=== PATIENT | male | born 1990 | race Caucasian/White ===

== ENCOUNTER → 2019-01-17 | Outpatient (CLI) | payer OTHER ==
[~2019-01-17] MED LIST: AMOXICILLIN500 MG PO; ATIVAN2 M1 PO; CLINDAMYCIN HC300 MG PO; CYMBALTA60 MG PO; HYDROCODONE BIT1 T11 PO; NAPROSYN500 MG PO; NEURONTIN300 MG PO; NKHM PO; PERCOCET 325 MG1 TA5 PO; VIBERZI75 MG PO; ZANTAC 150150 MG PO
[2019-01-17 16:34] LABS: BUN 6 mg/dl (7-24); CHLORIDE 100 mmol/L (98-107); POTASSIUM 3.9 mmol/L (3.5-5.1); SODIUM 136 mmol/L (136-145)
== END | disposition home or self-care (01) ==
LOC: LAB 15:36
PROVIDERS: Family Medicine
DX: E87.1 Hypo-osmolality and hyponatremia (principal); R73.9 Hyperglycemia, unspecified

== ENCOUNTER → 2020-09-15 | Outpatient (CLI) | payer OTHER | END | disposition home or self-care (01) | LOC: COVID19 09:55 | PROVIDERS: ATTEND Family Medicine | DX: Z20.822 Contact with and (suspected) exposure to COVID-19 (principal) ==

== ENCOUNTER → 2020-10-08 | Outpatient (CLI) | payer OTHER | END | disposition home or self-care (01) | LOC: COVID19 12:58 | PROVIDERS: ATTEND Internal Medicine | DX: Z20.822 Contact with and (suspected) exposure to COVID-19 (principal) ==

== ENCOUNTER → 2021-01-20 | Outpatient (CLI) | payer OTHER ==
[2021-01-20 12:32] LABS: BASO % 0.4 % (0.0-1.0); EOS # 0.1 10*3/uL (0.0-0.4); EOS % 0.8 % (1.0-4.0); LYMPH # 3.1 10*3/uL (1.3-4.4); LYMPH % 33.4 % (27.0-41.0); MEAN CELL VOLUME 91.8 fl (80.0-94.0); MEAN CORPUSCULAR HGB 30.5 pg (27.0-31.0); MEAN CORPUSCULAR HGB CONC 33.3 g/dl (33.0-37.0); MEAN PLATELET VOLUME 9.2 fl (9.6-12.3); MONO # 0.7 10*3/uL (0.1-1.0); MONO % 7.1 % (3.0-9.0); NEUT # 5.3 10*3/uL (2.3-7.9); PLATELET COUNT AUTOMATED 361 10*3/uL (130-400); RED BLOOD COUNT 5.01 10*6/uL (4.50-5.90); RED CELL DISTRI WIDTH 11.7 % (0-14.5); WHITE BLOOD COUNT 9.2 10*3/uL (4.8-10.8)
[2021-01-20 12:55] LABS: ALBUMIN 4.1 gm/dl (3.1-4.5); BUN 10 mg/dl (7-24); CHLORIDE 105 mmol/L (98-107); CREATININE 0.81 mg/dL (0.70-1.30); LIPASE 160 U/L (73-393); POTASSIUM 4.5 mmol/L (3.5-5.1); SGOT/AST 8 IU/L (3-35); SGPT/ALT 24 U/L (12-78); SODIUM 136 mmol/L (136-145); TOTAL PROTEIN 7.5 gm/dL (6.4-8.2)
[2021-01-20 13:00] LABS: ALKALINE PHOSPHATASE 89 U/L (45-117); CHOLESTEROL 164 mg/dL (<200); LDL CHOLESTEROL 108 mg/dL (9-159); TRIGLYCERIDES 55 mg/dl (<150)
== END | disposition home or self-care (01) ==
LOC: LAB 12:02
PROVIDERS: ATTEND Family Medicine
DX: R15.0 Incomplete defecation (principal)

== ENCOUNTER → 2021-06-11 | Outpatient (CLI) | payer OTHER ==
[2021-06-11 09:04] LABS: BUN 12 mg/dl (7-24); CHLORIDE 103 mmol/L (98-107); CREATININE 0.75 mg/dL (0.70-1.30); POTASSIUM 4.1 mmol/L (3.5-5.1); SODIUM 136 mmol/L (136-145)
== END | disposition home or self-care (01) ==
LOC: LAB 08:32
PROVIDERS: ATTEND Family Medicine
DX: R73.9 Hyperglycemia, unspecified (principal)

== ENCOUNTER 2021-12-27 10:35 | Inpatient (IN) | payer OTHER ==
[~2021-12-27] VITALS: Ht 193 cm; Wt 81.2 kg
[2021-12-27 10:43] VITALS: BP 121/77
[2021-12-27] MEDS ORDERED: ONDANSETRON HYDR4 MG PO (10:44)
[2021-12-27] MEDS ORDERED: AMOXICILLIN500 M2 PO (10:44)
[2021-12-27 11:11] LABS: HEMATOCRIT 47.7 % (42.0-52.0); MEAN CELL VOLUME 86.6 fl (80.0-94.0); MEAN CORPUSCULAR HGB 31.4 pg (27.0-31.0); MEAN CORPUSCULAR HGB CONC 36.3 g/dl (33.0-37.0); MEAN PLATELET VOLUME 9.1 fl (9.6-12.3); PLATELET COUNT AUTOMATED 417 10*3/uL (130-400); RED BLOOD COUNT 5.51 10*6/uL (4.50-5.90); RED CELL DISTRI WIDTH 11.7 % (0-14.5); WHITE BLOOD COUNT 16.3 10*3/uL (4.8-10.8)
[2021-12-27 11:13] LABS: MANUAL DIFF REFLEX YES
[2021-12-27 11:31] LABS: ALKALINE PHOSPHATASE 131 U/L (45-117); BUN 33 mg/dl (7-24); CHLORIDE 76 mmol/L (98-107); LIPASE 70 U/L (73-393); SGOT/AST 21 IU/L (3-35); SGPT/ALT 98 U/L (12-78); SODIUM 128 mmol/L (136-145); TOTAL PROTEIN 9.6 gm/dL (6.4-8.2)
[2021-12-27 11:33] LABS: ATYPICAL LYMPHS 1 % (0-0); PLATELET SUFFICIENCY HIGH (NORMAL); POLYCHROMASIA SLIGHT; TOTAL CELLS COUNTED 100 #CELLS
[2021-12-27 11:34] LABS: POTASSIUM 2.3 mmol/L (3.5-5.1); VACUOLATION OF NEUTROPHILS SLIGHT
[2021-12-27 12:15] VITALS: BP 117/66
[2021-12-27 12:15] LABS: ACT PARTIAL THROMBO TIME 27.4 SECONDS (20.0-32.1); INTERNATIONAL NORM RATIO 1.1 (2.0-3.5)
[2021-12-27 12:25] LABS: ETHYL ALCOHOL < 3.0 mg/dl (<3)
[2021-12-27 13:37] VITALS: BP 119/70
[2021-12-27 13:44] LABS: BILIRUBIN Negative (Negative); BLOOD Negative (Negative); CLARITY Cloudy (Clear); COLOR Dark Yellow (Yellow); GLUCOSE Trace (Negative); KETONE 2+ (Negative); LEUKO ESTERASE Trace (Negative); NITRITE Negative (Negative); PH 7.5 (4.5-8.0); SPECIFIC GRAVITY >= 1.030 (1.001-1.030)
[2021-12-27 13:55] LABS: BACTERIA 2+; MUCOUS 2+; URINE AMPHETAMINES < 1000 (1000ng/ml); URINE BARBITURATES < 200 (200ng/ml); URINE BENZODIAZEPINES < 200 (200ng/ml); URINE CANNABINOIDS (THC) > 50 (50ng/ml); URINE COCAINE < 300 (300ng/ml); URINE METHADONE < 300 (300ng/ml); URINE OPIATES < 300 (300ng/ml)
[2021-12-27 13:57] LABS: URINE PHENCYCLIDINE < 25 (25ng/ml)
[2021-12-27 15:06] VITALS: BP 116/76
[2021-12-27 15:07] LABS: ABG BASE EXCESS 16.6 mmol/L (-2.0-2.0); ARTERIAL BLOOD GAS PO2 85.6 (80-90)
[2021-12-27 15:09] LABS: ARTERIAL BLOOD GAS PH 7.711 (7.35-7.45)
[2021-12-27 15:30] VITALS: BP 134/84
[2021-12-27 15:31] LABS: BUN 33 mg/dl (7-24); CHLORIDE 84 mmol/L (98-107); CREATININE 1.18 mg/dL (0.70-1.30); SODIUM 131 mmol/L (136-145)
[2021-12-27 15:35] LABS: POTASSIUM 1.9 mmol/L (3.5-5.1)
[2021-12-27 19:20] LABS: BUN 27 mg/dl (7-24); CHLORIDE 88 mmol/L (98-107); SODIUM 133 mmol/L (136-145)
[2021-12-27 19:28] LABS: POTASSIUM 2.4 mmol/L (3.5-5.1)
[2021-12-27 20:00] VITALS: BP 122/62
[2021-12-27 22:16] LABS: BUN 23 mg/dl (7-24); CHLORIDE 89 mmol/L (98-107); CREATININE 0.99 mg/dL (0.70-1.30); SODIUM 133 mmol/L (136-145)
[2021-12-27 22:21] LABS: POTASSIUM 2.3 mmol/L (3.5-5.1)
[2021-12-28] VITALS: BP 134/75
[2021-12-28 02:25] LABS: BUN 20 mg/dl (7-24); CHLORIDE 89 mmol/L (98-107); CREATININE 0.95 mg/dL (0.70-1.30); SODIUM 133 mmol/L (136-145)
[2021-12-28 02:30] LABS: POTASSIUM 2.3 mmol/L (3.5-5.1)
[2021-12-28 05:46] LABS: ALKALINE PHOSPHATASE 81 U/L (45-117); BUN 15 mg/dl (7-24); CHLORIDE 93 mmol/L (98-107); CHOLESTEROL 120 mg/dL (<200); CREATININE 0.83 mg/dL (0.70-1.30); LDL CHOLESTEROL 80 mg/dL (9-159); POTASSIUM 2.5 mmol/L (3.5-5.1); SGOT/AST 19 IU/L (3-35); SGPT/ALT 59 U/L (12-78); SODIUM 134 mmol/L (136-145); TOTAL PROTEIN 6.5 gm/dL (6.4-8.2); TRIGLYCERIDES 72 mg/dl (<150)
[2021-12-28 05:51] LABS: FREE T4 1.61 ng/dl (0.76-1.46); THYROID STIM HORMONE (HS) 0.242 uIU/ml (0.358-4.75)
[2021-12-28 06:14] LABS: BASO % 0.1 % (0.0-1.0); EOS % 0.2 % (1.0-4.0); HEMATOCRIT 37.6 % (42.0-52.0); LYMPH % 16.3 % (27.0-41.0); MEAN CELL VOLUME 88.9 fl (80.0-94.0); MEAN CORPUSCULAR HGB CONC 34.8 g/dl (33.0-37.0); MEAN PLATELET VOLUME 9.6 fl (9.6-12.3); MONO # 1.3 10*3/uL (0.1-1.0); NEUT # 8.8 10*3/uL (2.3-7.9); PLATELET COUNT AUTOMATED 306 10*3/uL (130-400); RED BLOOD COUNT 4.23 10*6/uL (4.50-5.90); RED CELL DISTRI WIDTH 11.9 % (0-14.5); WHITE BLOOD COUNT 12.2 10*3/uL (4.8-10.8)
[2021-12-28 08:00] VITALS: BP 108/54
[2021-12-28 10:29] LABS: BUN 14 mg/dl (7-24); CHLORIDE 93 mmol/L (98-107); CREATININE 0.81 mg/dL (0.70-1.30); SODIUM 133 mmol/L (136-145)
[2021-12-28 10:35] LABS: POTASSIUM 2.4 mmol/L (3.5-5.1)
[2021-12-28 12:00] VITALS: BP 122/75
[2021-12-28 14:42] LABS: BUN 12 mg/dl (7-24); CHLORIDE 96 mmol/L (98-107); CREATININE 0.75 mg/dL (0.70-1.30); POTASSIUM 2.8 mmol/L (3.5-5.1); SODIUM 134 mmol/L (136-145)
[2021-12-28 16:00] VITALS: BP 107/61
[2021-12-28 20:54] VITALS: BP 149/76
[2021-12-28 21:24] LABS: BUN 10 mg/dl (7-24); CHLORIDE 99 mmol/L (98-107); CREATININE 0.86 mg/dL (0.70-1.30); POTASSIUM 2.8 mmol/L (3.5-5.1); SODIUM 136 mmol/L (136-145)
[2021-12-29] VITALS: BP 140/65
[2021-12-29 05:22] LABS: BUN 11 mg/dl (7-24); CHLORIDE 102 mmol/L (98-107); CREATININE 0.74 mg/dL (0.70-1.30); POTASSIUM 2.9 mmol/L (3.5-5.1); SODIUM 139 mmol/L (136-145)
[2021-12-29 05:57] LABS: BASO % 0.3 % (0.0-1.0); EOS # 0.1 10*3/uL (0.0-0.4); EOS % 0.8 % (1.0-4.0); HEMATOCRIT 35.9 % (42.0-52.0); LYMPH # 2.2 10*3/uL (1.3-4.4); LYMPH % 22.7 % (27.0-41.0); MEAN CELL VOLUME 90.7 fl (80.0-94.0); MEAN CORPUSCULAR HGB 31.8 pg (27.0-31.0); MEAN CORPUSCULAR HGB CONC 35.1 g/dl (33.0-37.0); MEAN PLATELET VOLUME 9.6 fl (9.6-12.3); MONO # 0.9 10*3/uL (0.1-1.0); MONO % 9.3 % (3.0-9.0); NEUT # 6.5 10*3/uL (2.3-7.9); NEUT % 66.3 % (47.0-73.0); PLATELET COUNT AUTOMATED 255 10*3/uL (130-400); RED BLOOD COUNT 3.96 10*6/uL (4.50-5.90); RED CELL DISTRI WIDTH 11.8 % (0-14.5); WHITE BLOOD COUNT 9.8 10*3/uL (4.8-10.8)
[2021-12-29 08:00] VITALS: BP 130/82
[2021-12-29] MEDS ORDERED: ZOFRAN4 MG PO (11:50)
[2021-12-29] MEDS ORDERED: K-TAB20 MEQ PO (11:51)
[2021-12-29 12:00] VITALS: BP 132/69
== END 2021-12-29 13:15 | disposition home or self-care (01) | DRG 720 ==
LOC: ED 10:35 → EDHOLD 14:14 → 4E 14:14 → EDHOLD 14:55 → 4E 14:59
PROVIDERS: Emergency Medicine; Family Medicine; Internal Medicine; Nurse Practitioner Family; Student in an Organized Health Care Education/Training Program; ADMIT Internal Medicine; ATTEND Internal Medicine
DX: A41.9 Sepsis, unspecified organism (principal); N17.0 Acute kidney failure with tubular necrosis; E87.3 Alkalosis; E87.2 Acidosis; D75.839 Thrombocytosis, unspecified; E87.1 Hypo-osmolality and hyponatremia; K52.9 Noninfective gastroenteritis and colitis, unspecified; E87.4 Mixed disorder of acid-base balance; E87.6 Hypokalemia; K21.9 Gastro-esophageal reflux disease without esophagitis; Z20.822 Contact with and (suspected) exposure to COVID-19; E87.8 Other disorders of electrolyte and fluid balance, not elsewhere classified; R74.01 Elevation of levels of liver transaminase levels; R82.4 Acetonuria; E83.39 Other disorders of phosphorus metabolism; E83.41 Hypermagnesemia; F12.10 Cannabis abuse, uncomplicated; I10 Essential (primary) hypertension; Z90.49 Acquired absence of other specified parts of digestive tract; Z82.49 Family history of ischemic heart disease and other diseases of the circulatory system; Z82.3 Family history of stroke

== ENCOUNTER 2022-02-24 12:06 | Inpatient (IN) | payer OTHER ==
[~2022-02-24] VITALS: Ht 193 cm; Wt 85.0 kg
[2022-02-24] VITALS (7 sets, daily range): BP systolic 115–126; BP diastolic 61–81
[~2022-02-24 12:06] MED LIST changes: +AMOXICILLIN500 M2 PO; +K-TAB20 MEQ PO; +ONDANSETRON HYDR4 MG PO; +ZOFRAN4 MG PO
[2022-02-24 12:34] LABS: HEMATOCRIT 49.1 % (42.0-52.0); MEAN CELL VOLUME 86.1 fl (80.0-94.0); MEAN CORPUSCULAR HGB 30.7 pg (27.0-31.0); MEAN CORPUSCULAR HGB CONC 35.6 g/dl (33.0-37.0); MEAN PLATELET VOLUME 9.5 fl (9.6-12.3); PLATELET COUNT AUTOMATED 373 10*3/uL (130-400); RED CELL DISTRI WIDTH 11.4 % (0-14.5); WHITE BLOOD COUNT 19.3 10*3/uL (4.8-10.8)
[2022-02-24 12:53] LABS: CREATININE 3.46 mg/dL (0.70-1.30); MANUAL DIFF REFLEX YES; TOTAL PROTEIN 8.5 gm/dL (6.4-8.2)
[2022-02-24 12:56] LABS: PLATELET SUFFICIENCY NORMAL (NORMAL); POLYCHROMASIA SLIGHT; TOTAL CELLS COUNTED 100 #CELLS; VACUOLATION OF NEUTROPHILS SLIGHT
[2022-02-24 12:59] LABS: POTASSIUM 1.9 mmol/L (3.5-5.1)
[2022-02-24 15:38] LABS: ARTERIAL BLOOD GAS PH 7.572 (7.35-7.45); ARTERIAL BLOOD GAS PO2 89.5 (80-90)
[2022-02-24 15:39] LABS: ABG BASE EXCESS 31.2 mmol/L (-2.0-2.0)
[2022-02-24] MEDS ORDERED: PERCOCET 10-321 EACH PO (15:45)
[2022-02-24] MEDS ORDERED: METFORMIN HYDR500 MG PO (15:47)
[2022-02-24 17:24] LABS: POTASSIUM 1.9 mmol/L (3.5-5.1)
[2022-02-24 19:12] LABS: CREATININE 3.27 mg/dL (0.70-1.30)
[2022-02-24 19:16] LABS: POTASSIUM 1.9 mmol/L (3.5-5.1)
[2022-02-24 20:43] LABS: CREATININE 2.97 mg/dL (0.70-1.30); POTASSIUM 2.8 mmol/L (3.5-5.1)
[2022-02-24 20:43] LABS: URINE AMPHETAMINES < 1000 (1000ng/ml); URINE BARBITURATES < 200 (200ng/ml); URINE BENZODIAZEPINES < 200 (200ng/ml); URINE CANNABINOIDS (THC) > 50 (50ng/ml); URINE COCAINE < 300 (300ng/ml); URINE METHADONE < 300 (300ng/ml); URINE OPIATES < 300 (300ng/ml)
[2022-02-24 20:47] LABS: BILIRUBIN Negative (Negative); BLOOD 1+ (Negative); CLARITY Clear (Clear); COLOR Yellow (Yellow); GLUCOSE Negative (Negative); KETONE Negative (Negative); LEUKO ESTERASE Negative (Negative); NITRITE Negative (Negative); SPECIFIC GRAVITY 1.015 (1.001-1.030)
[2022-02-24 20:48] LABS: URINE CHLORIDE, RANDOM < 10 mmol/L; URINE PHENCYCLIDINE < 25 (25ng/ml)
[2022-02-24 20:56] LABS: VENOUS PH 7.505 (7.37-7.45)
[2022-02-24 20:59] LABS: BACTERIA TRACE
[2022-02-25] VITALS: BP 98/55
[2022-02-25 02:00] VITALS: BP 94/53
[2022-02-25 02:36] LABS: CREATININE 2.75 mg/dL (0.70-1.30)
[2022-02-25 02:38] LABS: POTASSIUM 2.1 mmol/L (3.5-5.1)
[2022-02-25 04:00] VITALS: BP 107/56
[2022-02-25 06:00] VITALS: BP 95/59
[2022-02-25 06:26] LABS: CREATININE 2.67 mg/dL (0.70-1.30); TOTAL PROTEIN 6.6 gm/dL (6.4-8.2)
[2022-02-25 06:32] LABS: FREE T4 1.89 ng/dl (0.76-1.46); THYROID STIM HORMONE (HS) 0.176 uIU/ml (0.358-4.75)
[2022-02-25 06:39] LABS: POTASSIUM 2.2 mmol/L (3.5-5.1)
[2022-02-25 06:41] LABS: HEMATOCRIT 39.4 % (42.0-52.0); MEAN CELL VOLUME 88.9 fl (80.0-94.0); MEAN CORPUSCULAR HGB 30.5 pg (27.0-31.0); MEAN CORPUSCULAR HGB CONC 34.3 g/dl (33.0-37.0); MEAN PLATELET VOLUME 10.1 fl (9.6-12.3); PLATELET COUNT AUTOMATED 273 10*3/uL (130-400); RED BLOOD COUNT 4.43 10*6/uL (4.50-5.90); RED CELL DISTRI WIDTH 11.6 % (0-14.5); WHITE BLOOD COUNT 19.9 10*3/uL (4.8-10.8)
[2022-02-25 06:46] LABS: MANUAL DIFF REFLEX YES
[2022-02-25 07:17] LABS: TOTAL CELLS COUNTED 100 #CELLS; VACUOLATION OF NEUTROPHILS SLIGHT
[2022-02-25 07:18] LABS: PLATELET SUFFICIENCY NORMAL (NORMAL)
[2022-02-25 08:00] VITALS: BP 102/61
== END 2022-02-25 09:00 | disposition short-term general hospital (02) | DRG 53 ==
LOC: ED 12:06 → EDHOLD 14:09 → ICCU 14:09
PROVIDERS: Emergency Medicine; Internal Medicine; Internal Medicine Critical Care Medicine; Internal Medicine Nephrology; Student in an Organized Health Care Education/Training Program; ADMIT Family Medicine; ATTEND Family Medicine
DX: R56.9 Unspecified convulsions (principal); E87.6 Hypokalemia; E87.4 Mixed disorder of acid-base balance; N17.0 Acute kidney failure with tubular necrosis; R65.11 Systemic inflammatory response syndrome (SIRS) of non-infectious origin with acute organ dysfunction; F12.10 Cannabis abuse, uncomplicated; E87.1 Hypo-osmolality and hyponatremia; E83.41 Hypermagnesemia; E87.8 Other disorders of electrolyte and fluid balance, not elsewhere classified; E80.6 Other disorders of bilirubin metabolism; G89.29 Other chronic pain; K21.9 Gastro-esophageal reflux disease without esophagitis; E11.65 Type 2 diabetes mellitus with hyperglycemia; F41.9 Anxiety disorder, unspecified; I48.91 Unspecified atrial fibrillation; E83.51 Hypocalcemia; Z90.49 Acquired absence of other specified parts of digestive tract; Z82.49 Family history of ischemic heart disease and other diseases of the circulatory system; Z82.3 Family history of stroke; Z79.1 Long term (current) use of non-steroidal anti-inflammatories (NSAID); Z79.899 Other long term (current) drug therapy

== ENCOUNTER 2022-03-24 06:10 | Emergency (ER) | payer OTHER ==
[~2022-03-24] VITALS: Ht 193 cm; Wt 81.6 kg
[~2022-03-24 06:10] MED LIST changes: +METFORMIN HYDR500 MG PO; +PERCOCET 10-321 EACH PO
[2022-03-24] MEDS ORDERED: METOCLOPRAMIDE10 M1 PO (06:29)
[2022-03-24] MEDS ORDERED: PERCOCET 10-321 EACH PO (06:29)
[2022-03-24] MEDS ORDERED: AVPAK LEVETIRA750 M1 PO (06:29)
[2022-03-24 07:03] LABS: BASO % 0.2 % (0.0-1.0); EOS % 0.6 % (1.0-4.0); HEMATOCRIT 40.3 % (42.0-52.0); LYMPH # 1.1 10*3/uL (1.3-4.4); LYMPH % 20.6 % (27.0-41.0); MEAN CELL VOLUME 89.2 fl (80.0-94.0); MEAN CORPUSCULAR HGB 31.2 pg (27.0-31.0); MEAN PLATELET VOLUME 9.2 fl (9.6-12.3); MONO # 0.5 10*3/uL (0.1-1.0); MONO % 8.9 % (3.0-9.0); NEUT # 3.7 10*3/uL (2.3-7.9); NEUT % 69.3 % (47.0-73.0); PLATELET COUNT AUTOMATED 329 10*3/uL (130-400); RED BLOOD COUNT 4.52 10*6/uL (4.50-5.90); RED CELL DISTRI WIDTH 12.1 % (0-14.5); WHITE BLOOD COUNT 5.4 10*3/uL (4.8-10.8)
[2022-03-24 07:20] LABS: ALKALINE PHOSPHATASE 204 U/L (45-117); BUN 21 mg/dl (7-24); CHLORIDE 92 mmol/L (98-107); CREATININE 1.48 mg/dL (0.70-1.30); LIPASE 49 U/L (73-393); POTASSIUM 3.1 mmol/L (3.5-5.1); SGOT/AST 19 IU/L (3-35); SGPT/ALT 67 U/L (12-78); SODIUM 137 mmol/L (136-145); TOTAL PROTEIN 9.1 gm/dL (6.4-8.2)
[2022-03-24] MEDS ORDERED: ONDANSETRON4 MG SL (11:56)
== END 2022-03-24 12:09 | disposition home or self-care (01) ==
LOC: ED 06:10
PROVIDERS: Emergency Medicine
DX: K52.9 Noninfective gastroenteritis and colitis, unspecified (principal); E11.9 Type 2 diabetes mellitus without complications; K21.9 Gastro-esophageal reflux disease without esophagitis; Z90.49 Acquired absence of other specified parts of digestive tract; Z98.890 Other specified postprocedural states; Z87.891 Personal history of nicotine dependence

== ENCOUNTER 2022-03-26 09:37 | Inpatient (IN) | payer OTHER ==
[~2022-03-26] VITALS: Ht 193 cm; Wt 83.1 kg
[~2022-03-26 09:37] MED LIST changes: +AVPAK LEVETIRA750 M1 PO; +METOCLOPRAMIDE10 M1 PO; +ONDANSETRON4 MG SL
[2022-03-26 10:11] LABS: BASO % 0.2 % (0.0-1.0); EOS % 0.3 % (1.0-4.0); HEMATOCRIT 41.2 % (42.0-52.0); LYMPH # 1.7 10*3/uL (1.3-4.4); LYMPH % 16.4 % (27.0-41.0); MEAN CORPUSCULAR HGB 30.8 pg (27.0-31.0); MEAN PLATELET VOLUME 9.6 fl (9.6-12.3); MONO % 9.8 % (3.0-9.0); NEUT # 7.7 10*3/uL (2.3-7.9); NEUT % 72.9 % (47.0-73.0); PLATELET COUNT AUTOMATED 248 10*3/uL (130-400); RED BLOOD COUNT 4.68 10*6/uL (4.50-5.90); RED CELL DISTRI WIDTH 11.8 % (0-14.5); WHITE BLOOD COUNT 10.5 10*3/uL (4.8-10.8)
[2022-03-26 10:24] LABS: ACT PARTIAL THROMBO TIME 28.6 SECONDS (20.0-32.1); INTERNATIONAL NORM RATIO 1.1 (2.0-3.5)
[2022-03-26 10:28] LABS: ALKALINE PHOSPHATASE 165 U/L (45-117); BUN 21 mg/dl (7-24); CHLORIDE 80 mmol/L (98-107); CREATININE 1.55 mg/dL (0.70-1.30); LIPASE 90 U/L (73-393); SGOT/AST 18 IU/L (3-35); SGPT/ALT 47 U/L (12-78); SODIUM 129 mmol/L (136-145)
[2022-03-26 10:49] LABS: POTASSIUM 2.3 mmol/L (3.5-5.1)
[2022-03-26 13:08] LABS: BILIRUBIN Negative (Negative); BLOOD Negative (Negative); CLARITY Clear (Clear); COLOR Yellow (Yellow); GLUCOSE Negative (Negative); KETONE Negative (Negative); LEUKO ESTERASE Negative (Negative); NITRITE Negative (Negative); SPECIFIC GRAVITY 1.015 (1.001-1.030)
[2022-03-26 13:10] LABS: PH 8.5 (4.5-8.0)
[2022-03-26 13:15] LABS: WBC 0-2 wbc/hpf (0-5)
[2022-03-26] MEDS ORDERED: KEPPRA XR750 MG PO (14:19)
[2022-03-26 15:28] VITALS: BP 142/81
[2022-03-26 15:29] VITALS: BP 142/81
[2022-03-26 16:18] LABS: ABG BASE EXCESS 12.7 mmol/L (-2.0-2.0); ARTERIAL BLOOD GAS PH 7.532 (7.35-7.45); ARTERIAL BLOOD GAS PO2 66.7 (80-90)
[2022-03-26 18:06] LABS: BUN 18 mg/dl (7-24); CHLORIDE 87 mmol/L (98-107); POTASSIUM 2.6 mmol/L (3.5-5.1); SODIUM 131 mmol/L (136-145)
[2022-03-26 18:38] VITALS: BP 142/81
[2022-03-26 20:00] VITALS: BP 126/66
[2022-03-27] VITALS: BP 134/56
[2022-03-27 05:52] LABS: BUN 15 mg/dl (7-24); CHLORIDE 91 mmol/L (98-107); CHOLESTEROL 142 mg/dL (<200); CREATININE 1.09 mg/dL (0.70-1.30); SGOT/AST 15 IU/L (3-35); SGPT/ALT 37 U/L (12-78); SODIUM 135 mmol/L (136-145); TOTAL PROTEIN 6.9 gm/dL (6.4-8.2); TRIGLYCERIDES 118 mg/dl (<150)
[2022-03-27 05:53] LABS: ALKALINE PHOSPHATASE 121 U/L (45-117); LDL CHOLESTEROL 87 mg/dL (9-159)
[2022-03-27 06:07] LABS: POTASSIUM 2.4 mmol/L (3.5-5.1)
[2022-03-27 06:30] LABS: BASO % 0.3 % (0.0-1.0); EOS # 0.1 10*3/uL (0.0-0.4); EOS % 1.2 % (1.0-4.0); HEMATOCRIT 34.8 % (42.0-52.0); LYMPH # 2.5 10*3/uL (1.3-4.4); LYMPH % 25.6 % (27.0-41.0); MEAN CORPUSCULAR HGB CONC 33.9 g/dl (33.0-37.0); MEAN PLATELET VOLUME 10.9 fl (9.6-12.3); MONO # 0.9 10*3/uL (0.1-1.0); MONO % 9.4 % (3.0-9.0); NEUT # 6.1 10*3/uL (2.3-7.9); NEUT % 62.9 % (47.0-73.0); PLATELET COUNT AUTOMATED 186 10*3/uL (130-400); RED BLOOD COUNT 3.81 10*6/uL (4.50-5.90); WHITE BLOOD COUNT 9.6 10*3/uL (4.8-10.8)
[2022-03-27 06:33] LABS: MEAN CELL VOLUME 91.3 fl (80.0-94.0)
[2022-03-27 08:00] VITALS: BP 158/85
[2022-03-27 12:00] VITALS: BP 126/80
[2022-03-27 14:37] LABS: BUN 15 mg/dl (7-24); CHLORIDE 93 mmol/L (98-107); CREATININE 1.05 mg/dL (0.70-1.30); POTASSIUM 2.7 mmol/L (3.5-5.1); SODIUM 134 mmol/L (136-145)
[2022-03-27 15:20] LABS: URINE AMPHETAMINES < 1000 (1000ng/ml); URINE BARBITURATES < 200 (200ng/ml); URINE BENZODIAZEPINES < 200 (200ng/ml); URINE CANNABINOIDS (THC) > 50 (50ng/ml); URINE COCAINE < 300 (300ng/ml); URINE METHADONE < 300 (300ng/ml); URINE OPIATES > 300 (300ng/ml)
[2022-03-27 15:43] LABS: URINE PHENCYCLIDINE < 25 (25ng/ml)
[2022-03-27 16:00] VITALS: BP 119/73
[2022-03-27 20:00] VITALS: BP 117/67
[2022-03-28] VITALS: BP 125/75
[2022-03-28 05:06] LABS: BUN 16 mg/dl (7-24); CHLORIDE 100 mmol/L (98-107); CREATININE 0.94 mg/dL (0.70-1.30); POTASSIUM 3.4 mmol/L (3.5-5.1); SODIUM 136 mmol/L (136-145)
[2022-03-28 06:04] LABS: BASO % 0.2 % (0.0-1.0); EOS # 0.2 10*3/uL (0.0-0.4); EOS % 1.9 % (1.0-4.0); LYMPH # 2.1 10*3/uL (1.3-4.4); LYMPH % 21.2 % (27.0-41.0); MEAN CELL VOLUME 93.8 fl (80.0-94.0); MEAN CORPUSCULAR HGB 32.3 pg (27.0-31.0); MEAN CORPUSCULAR HGB CONC 34.4 g/dl (33.0-37.0); MONO # 0.7 10*3/uL (0.1-1.0); MONO % 6.9 % (3.0-9.0); NEUT # 6.8 10*3/uL (2.3-7.9); NEUT % 68.9 % (47.0-73.0); PLATELET COUNT AUTOMATED 151 10*3/uL (130-400); RED BLOOD COUNT 3.41 10*6/uL (4.50-5.90); RED CELL DISTRI WIDTH 11.9 % (0-14.5); WHITE BLOOD COUNT 9.9 10*3/uL (4.8-10.8)
[2022-03-28 08:00] VITALS: BP 147/84
[2022-03-28 12:00] VITALS: BP 121/70
[2022-03-28] MEDS ORDERED: PHENERGAN25 M3 PO (13:15)
== END 2022-03-28 14:00 | disposition home or self-care (01) | DRG 422 ==
LOC: ED 09:37 → 4E 13:20 → EDHOLD 13:20 → 4E 14:12
PROVIDERS: Emergency Medicine; Family Medicine; Student in an Organized Health Care Education/Training Program; ADMIT Internal Medicine; ATTEND Internal Medicine
DX: E86.0 Dehydration (principal); E87.1 Hypo-osmolality and hyponatremia; N17.0 Acute kidney failure with tubular necrosis; E87.3 Alkalosis; E87.2 Acidosis; E87.6 Hypokalemia; I48.91 Unspecified atrial fibrillation; F41.9 Anxiety disorder, unspecified; E11.9 Type 2 diabetes mellitus without complications; K21.9 Gastro-esophageal reflux disease without esophagitis; R10.9 Unspecified abdominal pain; G89.29 Other chronic pain; Z90.49 Acquired absence of other specified parts of digestive tract; Z87.19 Personal history of other diseases of the digestive system

== ENCOUNTER 2022-07-15 18:46 | Inpatient (IN) | payer OTHER ==
[~2022-07-15] VITALS: Ht 185.4 cm; Wt 87.6 kg
[~2022-07-15 18:46] MED LIST changes: +KEPPRA XR750 MG PO; +PHENERGAN25 M3 PO
[2022-07-15 18:52] VITALS: BP 157/103
[2022-07-15 19:52] LABS: BASO % 0.1 % (0.0-1.0); EOS % 0.1 % (1.0-4.0); HEMATOCRIT 45.8 % (42.0-52.0); LYMPH # 1.8 10*3/uL (1.3-4.4); LYMPH % 10.7 % (27.0-41.0); MEAN CELL VOLUME 88.4 fl (80.0-94.0); MEAN CORPUSCULAR HGB 31.5 pg (27.0-31.0); MEAN CORPUSCULAR HGB CONC 35.6 g/dl (33.0-37.0); MEAN PLATELET VOLUME 9.3 fl (9.6-12.3); MONO # 1.5 10*3/uL (0.1-1.0); MONO % 8.8 % (3.0-9.0); NEUT # 13.5 10*3/uL (2.3-7.9); NEUT % 79.7 % (47.0-73.0); PLATELET COUNT AUTOMATED 461 10*3/uL (130-400); RED BLOOD COUNT 5.18 10*6/uL (4.50-5.90); RED CELL DISTRI WIDTH 11.9 % (0-14.5); WHITE BLOOD COUNT 16.9 10*3/uL (4.8-10.8)
[2022-07-15 20:08] LABS: CREATININE 2.25 mg/dL (0.70-1.30); POTASSIUM 2.5 mmol/L (3.5-5.1); TOTAL PROTEIN 9.5 gm/dL (6.4-8.2)
[2022-07-15 21:14] VITALS: BP 138/80
[2022-07-15 21:49] VITALS: BP 132/80
[2022-07-15] MEDS ORDERED: LORAZEPAM2 MG PO (21:55)
[2022-07-15] MEDS ORDERED: MAGNESIUM OXID400 MG PO (21:55)
[2022-07-15] MEDS ORDERED: POTASSIUM CHLO20 ME4 PO (21:55)
[2022-07-15 23:24] VITALS: BP 121/70
[2022-07-16 00:22] VITALS: BP 131/80
[2022-07-16 01:37] LABS: URINE AMPHETAMINES < 1000 (1000ng/ml); URINE BARBITURATES < 200 (200ng/ml); URINE BENZODIAZEPINES < 200 (200ng/ml); URINE CANNABINOIDS (THC) > 50 (50ng/ml); URINE COCAINE < 300 (300ng/ml); URINE METHADONE < 300 (300ng/ml); URINE OPIATES < 300 (300ng/ml); URINE PHENCYCLIDINE < 25 (25ng/ml)
[2022-07-16 01:49] LABS: BILIRUBIN Negative (Negative); BLOOD Negative (Negative); CLARITY Cloudy (Clear); COLOR Dark Yellow (Yellow); GLUCOSE Negative (Negative); KETONE 1+ (Negative); LEUKO ESTERASE Trace (Negative); NITRITE Negative (Negative); SPECIFIC GRAVITY >= 1.030 (1.001-1.030)
[2022-07-16 01:53] LABS: BACTERIA TRACE; HYALINE CAST 21-30
[2022-07-16 06:27] LABS: BASO % 0.1 % (0.0-1.0); HEMATOCRIT 42.7 % (42.0-52.0); LYMPH # 2.1 10*3/uL (1.3-4.4); LYMPH % 12.2 % (27.0-41.0); MEAN CELL VOLUME 91.4 fl (80.0-94.0); MEAN PLATELET VOLUME 9.5 fl (9.6-12.3); MONO # 1.5 10*3/uL (0.1-1.0); MONO % 9.1 % (3.0-9.0); NEUT # 13.3 10*3/uL (2.3-7.9); NEUT % 78.2 % (47.0-73.0); PLATELET COUNT AUTOMATED 382 10*3/uL (130-400); RED BLOOD COUNT 4.67 10*6/uL (4.50-5.90)
[2022-07-16 07:02] LABS: CREATININE 1.96 mg/dL (0.70-1.30); FREE T4 1.52 ng/dl (0.76-1.46); POTASSIUM 2.9 mmol/L (3.5-5.1); TOTAL PROTEIN 7.8 gm/dL (6.4-8.2)
[2022-07-16 07:06] LABS: THYROID STIM HORMONE (HS) 0.489 uIU/ml (0.358-4.75)
[2022-07-16 07:36] LABS: TOTAL CELLS COUNTED 100 #CELLS
[2022-07-16 07:37] LABS: PLATELET SUFFICIENCY NORMAL (NORMAL)
[2022-07-16 08:00] VITALS: BP 128/62
[2022-07-16 12:00] VITALS: BP 129/65
[2022-07-16 15:45] LABS: BUN 45 mg/dl (7-24); CHLORIDE 92 mmol/L (98-107); CREATININE 1.54 mg/dL (0.70-1.30); POTASSIUM 2.9 mmol/L (3.5-5.1); SODIUM 138 mmol/L (136-145)
[2022-07-16 16:00] VITALS: BP 115/66
[2022-07-16 20:00] VITALS: BP 139/79
[2022-07-17] VITALS: BP 115/61
[2022-07-17 04:13] VITALS: BP 120/66
[2022-07-17 05:59] LABS: ALKALINE PHOSPHATASE 105 U/L (45-117); CHLORIDE 98 mmol/L (98-107); CREATININE 1.23 mg/dL (0.70-1.30); POTASSIUM 2.8 mmol/L (3.5-5.1); SGOT/AST 26 IU/L (3-35); SGPT/ALT 50 U/L (12-78); SODIUM 141 mmol/L (136-145)
[2022-07-17 06:08] LABS: BUN 27 mg/dl (7-24)
[2022-07-17 06:13] LABS: BASO % 0.2 % (0.0-1.0); EOS # 0.1 10*3/uL (0.0-0.4); EOS % 0.6 % (1.0-4.0); HEMATOCRIT 40.3 % (42.0-52.0); LYMPH # 2.7 10*3/uL (1.3-4.4); LYMPH % 23.5 % (27.0-41.0); MEAN CELL VOLUME 93.7 fl (80.0-94.0); MEAN CORPUSCULAR HGB 30.9 pg (27.0-31.0); MEAN PLATELET VOLUME 9.8 fl (9.6-12.3); MONO # 1.1 10*3/uL (0.1-1.0); MONO % 9.1 % (3.0-9.0); NEUT # 7.6 10*3/uL (2.3-7.9); NEUT % 66.2 % (47.0-73.0); PLATELET COUNT AUTOMATED 322 10*3/uL (130-400); RED CELL DISTRI WIDTH 11.9 % (0-14.5); WHITE BLOOD COUNT 11.5 10*3/uL (4.8-10.8)
[2022-07-17 08:00] VITALS: BP 124/61
[2022-07-17] MEDS ORDERED: REGLAN5 MG PO (10:50)
== END 2022-07-17 12:41 | disposition home or self-care (01) | DRG 425 ==
LOC: ED 18:46 → 4E 22:02 → EDHOLD 22:02 → 4E 23:39
PROVIDERS: Family Medicine; Internal Medicine; Physician Assistant; ADMIT Student in an Organized Health Care Education/Training Program; ATTEND Student in an Organized Health Care Education/Training Program
DX: E87.6 Hypokalemia (principal); R11.2 Nausea with vomiting, unspecified; N17.0 Acute kidney failure with tubular necrosis; E88.09 Other disorders of plasma-protein metabolism, not elsewhere classified; K21.9 Gastro-esophageal reflux disease without esophagitis; F41.9 Anxiety disorder, unspecified; R65.10 Systemic inflammatory response syndrome (SIRS) of non-infectious origin without acute organ dysfunction; F17.210 Nicotine dependence, cigarettes, uncomplicated; F12.11 Cannabis abuse, in remission; D75.839 Thrombocytosis, unspecified; E87.8 Other disorders of electrolyte and fluid balance, not elsewhere classified; E11.65 Type 2 diabetes mellitus with hyperglycemia; T40.715A Adverse effect of cannabis, initial encounter; Y92.89 Other specified places as the place of occurrence of the external cause; Z87.19 Personal history of other diseases of the digestive system; Z79.899 Other long term (current) drug therapy; Z71.6 Tobacco abuse counseling; Z90.49 Acquired absence of other specified parts of digestive tract; Z82.49 Family history of ischemic heart disease and other diseases of the circulatory system; Z82.3 Family history of stroke; Z80.9 Family history of malignant neoplasm, unspecified

== ENCOUNTER 2022-09-07 15:09 | Inpatient (IN) | payer OTHER ==
[~2022-09-07] VITALS: Ht 193 cm; Wt 82.2 kg
[~2022-09-07 15:09] MED LIST changes: +LORAZEPAM2 MG PO; +MAGNESIUM OXID400 MG PO; +POTASSIUM CHLO20 ME4 PO; +REGLAN5 MG PO
[2022-09-07 16:02] VITALS: BP 142/105
[2022-09-07 19:43] LABS: HEMATOCRIT 43.3 % (42.0-52.0); MEAN CELL VOLUME 88.7 fl (80.0-94.0); MEAN CORPUSCULAR HGB 30.3 pg (27.0-31.0); MEAN CORPUSCULAR HGB CONC 34.2 g/dl (33.0-37.0); MEAN PLATELET VOLUME 8.8 fl (9.6-12.3); PLATELET COUNT AUTOMATED 472 10*3/uL (130-400); RED BLOOD COUNT 4.88 10*6/uL (4.50-5.90); RED CELL DISTRI WIDTH 12.2 % (0-14.5); WHITE BLOOD COUNT 9.9 10*3/uL (4.8-10.8)
[2022-09-07 19:49] LABS: MANUAL DIFF REFLEX YES
[2022-09-07 19:58] LABS: ALKALINE PHOSPHATASE 144 U/L (46-116); BUN 51 mg/dl (9-23); LIPASE 43 U/L (12-53); SGPT/ALT 45 U/L (10-49); TOTAL PROTEIN 8.4 gm/dL (6.0-8.0)
[2022-09-07 20:00] LABS: CHLORIDE 74 mmol/L (98-107)
[2022-09-07 20:05] LABS: PLATELET SUFFICIENCY HIGH (NORMAL); TOTAL CELLS COUNTED 100 #CELLS
[2022-09-07 20:10] LABS: POTASSIUM 2.3 mmol/L (3.4-5.1)
[2022-09-07 20:44] LABS: BILIRUBIN Negative (Negative); BLOOD Negative (Negative); CLARITY Clear (Clear); COLOR Yellow (Yellow); GLUCOSE Negative (Negative); KETONE Negative (Negative); LEUKO ESTERASE Negative (Negative); NITRITE Negative (Negative); SPECIFIC GRAVITY 1.025 (1.001-1.030)
[2022-09-07 20:51] LABS: URINE AMPHETAMINES Negative (1000ng/ml); URINE BARBITURATES Negative (200ng/ml); URINE BENZODIAZEPINES Negative (200ng/ml); URINE CANNABINOIDS (THC) Positive (50ng/ml); URINE COCAINE Negative (300ng/ml); URINE METHADONE Negative (300ng/ml); URINE OPIATES Negative (300ng/ml); URINE PHENCYCLIDINE Negative (25ng/ml)
[2022-09-07 20:55] LABS: BACTERIA 1+; FINE GRANULAR CAST 0-2; RBC 0-2 rbc/hpf (0-2); WBC 0-2 wbc/hpf (0-5)
[2022-09-07 21:39] VITALS: BP 138/83
[2022-09-08 05:53] VITALS: BP 136/76
[2022-09-08 06:31] VITALS: BP 150/88
[2022-09-08 06:31] LABS: BASO % 0.1 % (0.0-1.0); EOS % 0.3 % (1.0-4.0); HEMATOCRIT 38.2 % (42.0-52.0); LYMPH # 1.8 10*3/uL (1.3-4.4); LYMPH % 20.2 % (27.0-41.0); MEAN CELL VOLUME 89.5 fl (80.0-94.0); MEAN CORPUSCULAR HGB CONC 33.5 g/dl (33.0-37.0); MONO # 0.9 10*3/uL (0.1-1.0); MONO % 9.9 % (3.0-9.0); NEUT # 6.2 10*3/uL (2.3-7.9); NEUT % 69.1 % (47.0-73.0); PLATELET COUNT AUTOMATED 436 10*3/uL (130-400); RED BLOOD COUNT 4.27 10*6/uL (4.50-5.90); RED CELL DISTRI WIDTH 12.2 % (0-14.5)
[2022-09-08 08:28] LABS: BUN 45 mg/dl (9-23); CHLORIDE 82 mmol/L (98-107)
[2022-09-08 08:33] LABS: POTASSIUM 2.2 mmol/L (3.4-5.1)
[2022-09-08 08:47] VITALS: BP 160/88
[2022-09-08 14:37] LABS: POTASSIUM 2.9 mmol/L (3.4-5.1)
[2022-09-08 15:00] VITALS: BP 136/97
[2022-09-08 21:05] VITALS: BP 157/95
[2022-09-08 21:16] VITALS: BP 132/78
[2022-09-09] VITALS: BP 136/77
[2022-09-09 08:00] VITALS: BP 131/93
[2022-09-09 08:46] LABS: BASO % 0.4 % (0.0-1.0); EOS # 0.2 10*3/uL (0.0-0.4); EOS % 1.9 % (1.0-4.0); LYMPH # 2.2 10*3/uL (1.3-4.4); LYMPH % 21.4 % (27.0-41.0); MEAN CELL VOLUME 90.5 fl (80.0-94.0); MEAN CORPUSCULAR HGB CONC 34.3 g/dl (33.0-37.0); MONO # 0.8 10*3/uL (0.1-1.0); MONO % 8.1 % (3.0-9.0); NEUT # 6.9 10*3/uL (2.3-7.9); NEUT % 67.5 % (47.0-73.0); PLATELET COUNT AUTOMATED 447 10*3/uL (130-400); RED BLOOD COUNT 4.42 10*6/uL (4.50-5.90); RED CELL DISTRI WIDTH 12.2 % (0-14.5); WHITE BLOOD COUNT 10.3 10*3/uL (4.8-10.8)
[2022-09-09 10:20] LABS: BUN 32 mg/dl (9-23); CHLORIDE 85 mmol/L (98-107); POTASSIUM 2.9 mmol/L (3.4-5.1)
[2022-09-09 12:00] VITALS: BP 135/91
[2022-09-09 16:00] VITALS: BP 137/89
[2022-09-09 20:00] VITALS: BP 136/83
[2022-09-10] VITALS: BP 134/84
[2022-09-10 07:13] LABS: BASO % 0.4 % (0.0-1.0); EOS # 0.2 10*3/uL (0.0-0.4); EOS % 2.3 % (1.0-4.0); LYMPH % 21.5 % (27.0-41.0); MEAN CELL VOLUME 92.2 fl (80.0-94.0); MEAN CORPUSCULAR HGB 30.3 pg (27.0-31.0); MEAN CORPUSCULAR HGB CONC 32.8 g/dl (33.0-37.0); MONO # 0.6 10*3/uL (0.1-1.0); MONO % 5.8 % (3.0-9.0); NEUT # 6.5 10*3/uL (2.3-7.9); NEUT % 69.3 % (47.0-73.0); PLATELET COUNT AUTOMATED 372 10*3/uL (130-400); RED BLOOD COUNT 4.23 10*6/uL (4.50-5.90); RED CELL DISTRI WIDTH 12.2 % (0-14.5); WHITE BLOOD COUNT 9.4 10*3/uL (4.8-10.8)
[2022-09-10 08:00] VITALS: BP 158/80
[2022-09-10 08:15] LABS: BUN 25 mg/dl (9-23); CHLORIDE 95 mmol/L (98-107)
[2022-09-10 08:23] LABS: POTASSIUM 3.9 mmol/L (3.4-5.1)
[2022-09-10] MEDS ORDERED: REGLAN5 MG PO (09:44)
== END 2022-09-10 10:12 | disposition home or self-care (01) | DRG 426 ==
LOC: ED 15:09 → EDHOLD 21:00 → 5E 21:00
PROVIDERS: Internal Medicine; Physician Assistant; Student in an Organized Health Care Education/Training Program; ADMIT Internal Medicine; ATTEND Internal Medicine
DX: E87.1 Hypo-osmolality and hyponatremia (principal); E87.6 Hypokalemia; N17.0 Acute kidney failure with tubular necrosis; F41.9 Anxiety disorder, unspecified; G89.29 Other chronic pain; R10.9 Unspecified abdominal pain; K21.9 Gastro-esophageal reflux disease without esophagitis; D75.839 Thrombocytosis, unspecified; E87.8 Other disorders of electrolyte and fluid balance, not elsewhere classified; E88.09 Other disorders of plasma-protein metabolism, not elsewhere classified; E11.65 Type 2 diabetes mellitus with hyperglycemia; F12.11 Cannabis abuse, in remission; Z90.49 Acquired absence of other specified parts of digestive tract

== ENCOUNTER → 2022-12-27 | Outpatient (CLI) | payer OTHER ==
[~2022-12-27] MED LIST changes: +BASAG SOL SQ; +VITAMIN D350 MC2 PO
[2022-12-27 12:34] LABS: POTASSIUM 4.4 mmol/L (3.4-5.1)
== END | disposition home or self-care (01) ==
LOC: LAB 11:29
PROVIDERS: ATTEND Family Medicine
DX: E87.1 Hypo-osmolality and hyponatremia (principal); E87.6 Hypokalemia

== ENCOUNTER → 2023-02-22 | Outpatient (CLI) | payer OTHER ==
[~2023-02-22] MED LIST changes: +AMLODIPINE BESYL5 MG PO; +LACTATED RING1000 ML IV; +LANTUS SOL100 UNIT/1 SC
== END | disposition home or self-care (01) ==
LOC: LAB 11:39
PROVIDERS: ATTEND Family Medicine
DX: E87.1 Hypo-osmolality and hyponatremia (principal); E87.6 Hypokalemia

== ENCOUNTER 2023-03-01 10:30 | Inpatient (IN) | payer OTHER ==
[~2023-03-01] VITALS: Ht 193 cm; Wt 95.3 kg
[~2023-03-01 10:30] MED LIST changes: -MAGNESIUM OXID400 MG PO; -POTASSIUM CHLO20 ME4 PO
[2023-03-01 10:44] VITALS: BP 164/90
[2023-03-01 11:28] LABS: BASO % 0.2 % (0.0-1.0); EOS % 0.3 % (1.0-4.0); HEMATOCRIT 38.8 % (42.0-52.0); LYMPH # 1.5 10*3/uL (1.3-4.4); LYMPH % 9.9 % (27.0-41.0); MEAN CELL VOLUME 89.8 fl (80.0-94.0); MEAN CORPUSCULAR HGB CONC 34.5 g/dl (33.0-37.0); MEAN PLATELET VOLUME 9.2 fl (9.6-12.3); MONO # 0.9 10*3/uL (0.1-1.0); MONO % 6.2 % (3.0-9.0); NEUT # 12.5 10*3/uL (2.3-7.9); NEUT % 82.9 % (47.0-73.0); PLATELET COUNT AUTOMATED 553 10*3/uL (130-400); RED BLOOD COUNT 4.32 10*6/uL (4.50-5.90); RED CELL DISTRI WIDTH 12.5 % (0-14.5); WHITE BLOOD COUNT 15.1 10*3/uL (4.8-10.8)
[2023-03-01] MEDS ORDERED: KEPPRA750 MG PO (11:29)
[2023-03-01 11:33] LABS: ACT PARTIAL THROMBO TIME 29.4 SECONDS (20.0-32.1); INTERNATIONAL NORM RATIO 1.2 (2.0-3.5)
[2023-03-01 11:44] LABS: ALKALINE PHOSPHATASE 112 U/L (46-116); BUN 38 mg/dl (9-23); CHLORIDE 89 mmol/L (98-107); LIPASE 31 U/L (12-53); POTASSIUM 3.1 mmol/L (3.4-5.1); SGPT/ALT 16 U/L (10-49); TOTAL PROTEIN 9.2 gm/dL (6.0-8.0)
[2023-03-01 13:15] VITALS: BP 180/96
[2023-03-01] MEDS ORDERED: MAGNESIUM OXID400 MG PO (13:33)
[2023-03-01] MEDS ORDERED: POTASSIUM CHLO20 ME4 PO (13:34)
[2023-03-01 15:43] LABS: BILIRUBIN Negative (Negative); BLOOD Negative (Negative); CLARITY Clear (Clear); COLOR Yellow (Yellow); GLUCOSE Negative (Negative); KETONE Negative (Negative); LEUKO ESTERASE Negative (Negative); NITRITE Negative (Negative)
[2023-03-01 15:50] LABS: URINE AMPHETAMINES Negative (1000ng/ml); URINE BARBITURATES Negative (200ng/ml); URINE BENZODIAZEPINES Negative (200ng/ml); URINE CANNABINOIDS (THC) Positive (50ng/ml); URINE COCAINE Negative (300ng/ml); URINE METHADONE Negative (300ng/ml); URINE OPIATES Negative (300ng/ml); URINE PHENCYCLIDINE Negative (25ng/ml)
[2023-03-01 16:00] VITALS: BP 138/66
[2023-03-01 16:30] LABS: BACTERIA 1+; RBC 0-2 rbc/hpf (0-2); WBC 0-2 wbc/hpf (0-5)
[2023-03-01 20:00] VITALS: BP 118/70
[2023-03-02] VITALS: BP 159/89
[2023-03-02 06:51] LABS: BASO % 0.2 % (0.0-1.0); EOS % 0.2 % (1.0-4.0); HEMATOCRIT 34.9 % (42.0-52.0); LYMPH # 2.1 10*3/uL (1.3-4.4); LYMPH % 15.3 % (27.0-41.0); MEAN CELL VOLUME 91.8 fl (80.0-94.0); MEAN CORPUSCULAR HGB 31.1 pg (27.0-31.0); MEAN CORPUSCULAR HGB CONC 33.8 g/dl (33.0-37.0); MEAN PLATELET VOLUME 9.1 fl (9.6-12.3); MONO # 1.2 10*3/uL (0.1-1.0); MONO % 9.1 % (3.0-9.0); NEUT # 10.1 10*3/uL (2.3-7.9); NEUT % 74.7 % (47.0-73.0); PLATELET COUNT AUTOMATED 414 10*3/uL (130-400); RED CELL DISTRI WIDTH 12.6 % (0-14.5); WHITE BLOOD COUNT 13.5 10*3/uL (4.8-10.8)
[2023-03-02 07:36] LABS: POTASSIUM 2.7 mmol/L (3.4-5.1); TOTAL PROTEIN 7.7 gm/dL (6.0-8.0)
[2023-03-02 08:00] VITALS: BP 168/73
[2023-03-02 08:36] LABS: ABG BASE EXCESS 16.7 mmol/L (-2.0-2.0); ARTERIAL BLOOD GAS PH 7.546 (7.35-7.45); ARTERIAL BLOOD GAS PO2 85.1 (80-90)
[2023-03-02 08:41] VITALS: BP 160/80
[2023-03-02 12:00] VITALS: BP 185/90
[2023-03-02 15:59] VITALS: BP 131/72
[2023-03-02 20:00] VITALS: BP 156/90
[2023-03-03] VITALS: BP 126/80
[2023-03-03 06:49] LABS: BASO # 0.1 10*3/uL (0.0-0.1); BASO % 0.4 % (0.0-1.0); EOS # 0.3 10*3/uL (0.0-0.4); EOS % 2.2 % (1.0-4.0); MEAN CELL VOLUME 92.1 fl (80.0-94.0); MEAN CORPUSCULAR HGB 30.5 pg (27.0-31.0); MEAN CORPUSCULAR HGB CONC 33.1 g/dl (33.0-37.0); MEAN PLATELET VOLUME 9.2 fl (9.6-12.3); MONO % 8.3 % (3.0-9.0); NEUT # 7.2 10*3/uL (2.3-7.9); NEUT % 62.6 % (47.0-73.0); PLATELET COUNT AUTOMATED 397 10*3/uL (130-400); RED CELL DISTRI WIDTH 12.1 % (0-14.5); WHITE BLOOD COUNT 11.6 10*3/uL (4.8-10.8)
[2023-03-03 07:14] LABS: TOTAL PROTEIN 7.1 gm/dL (6.0-8.0)
[2023-03-03 07:16] LABS: POTASSIUM 3.8 mmol/L (3.4-5.1)
[2023-03-03 08:00] VITALS: BP 154/74
[2023-03-03] MEDS ORDERED: AMLODIPINE BESYL5 MG PO (09:52)
== END 2023-03-03 10:38 | disposition home or self-care (01) | DRG 720 ==
LOC: ED 10:30 → 5E 12:11 → EDHOLD 12:11 → 5E 12:28
PROVIDERS: Emergency Medicine; Internal Medicine; ADMIT Internal Medicine; ATTEND Internal Medicine
DX: A41.9 Sepsis, unspecified organism (principal); K52.9 Noninfective gastroenteritis and colitis, unspecified; R11.15 Cyclical vomiting syndrome unrelated to migraine; R65.20 Severe sepsis without septic shock; D75.839 Thrombocytosis, unspecified; D64.9 Anemia, unspecified; E86.0 Dehydration; N17.0 Acute kidney failure with tubular necrosis; K21.9 Gastro-esophageal reflux disease without esophagitis; F41.9 Anxiety disorder, unspecified; I45.81 Long QT syndrome; E87.6 Hypokalemia; F12.90 Cannabis use, unspecified, uncomplicated; Z90.49 Acquired absence of other specified parts of digestive tract; Z82.49 Family history of ischemic heart disease and other diseases of the circulatory system; Z79.4 Long term (current) use of insulin

== ENCOUNTER 2024-01-02 15:15 | Inpatient (IN) | payer OTHER ==
[~2024-01-02] VITALS: Ht 182.8 cm; Wt 96.0 kg
[~2024-01-02 15:15] MED LIST changes: +ASPIRIN ADULT L81 M2 PO; +ATORVASTATIN CA40 M1 PO; +IMDUR SA30 MG PO; +KEPPRA750 MG PO; +MAGNESIUM OXID400 MG PO; +METOPROLOL SUCC50 M1 PO; +NORVASC10 MG PO; +POTASSIUM CHLO20 ME4 PO; +VITAMIN D250 MCG PO
[2024-01-02 15:20] VITALS: BP 174/87
[2024-01-02 15:44] LABS: RED CELL DISTRI WIDTH 12.6 % (0-14.5)
[2024-01-02 15:53] LABS: HEMATOCRIT 28.7 % (42.0-52.0); MANUAL DIFF REFLEX YES; MEAN CELL VOLUME 89.7 fl (80.0-94.0); MEAN CORPUSCULAR HGB 30.6 pg (27.0-31.0); MEAN CORPUSCULAR HGB CONC 34.1 g/dl (33.0-37.0); MEAN PLATELET VOLUME 9.3 fl (9.6-12.3); PLATELET COUNT AUTOMATED 581 10*3/uL (130-400); WHITE BLOOD COUNT 15.8 10*3/uL (4.8-10.8)
[2024-01-02 15:55] LABS: ACT PARTIAL THROMBO TIME 29.1 SECONDS (20.0-32.1)
[2024-01-02 16:05] LABS: ALKALINE PHOSPHATASE 120 U/L (46-116); BUN 59 mg/dl (9-23); CHLORIDE 78 mmol/L (98-107); LIPASE 50 U/L (12-53); POTASSIUM 2.9 mmol/L (3.4-5.1); SGPT/ALT 7 U/L (5-49); TOTAL PROTEIN 8.4 gm/dL (6.0-8.0)
[2024-01-02 16:10] LABS: BASOPHILS 1 % (0-1); PLATELET SUFFICIENCY HIGH (NORMAL); TOTAL CELLS COUNTED 100 #CELLS
[2024-01-02 16:11] LABS: ETHYL ALCOHOL < 3.0 mg/dl (<3)
[2024-01-02 16:14] LABS: OVALOCYTES FEW
[2024-01-02] MEDS ORDERED: SODIUM CHLORIDE 0.9% 1,000 ML IV SCH (16:20)
[2024-01-02] MEDS ORDERED: POTASSIUM CHLORIDE 20 MEQ TAB PO ONE (16:20)
[2024-01-02] MEDS ORDERED: POTASSIUM CHLORIDE IN WATER 100 ML IV SCH (17:00)
[2024-01-02] MEDS ORDERED: POTASSIUM CHLORIDE 20 MEQ in Lactated Ringer's Solution 1,000 ML IV SCH (18:00)
[2024-01-02 18:52] VITALS: BP 166/99
[2024-01-02 19:23] LABS: BILIRUBIN Negative (Negative); BLOOD Negative (Negative); CLARITY Clear (Clear); COLOR Yellow (Yellow); GLUCOSE 1+ (Negative); KETONE Negative (Negative); LEUKO ESTERASE Negative (Negative); NITRITE Negative (Negative); SPECIFIC GRAVITY 1.015 (1.001-1.030); UROBILINOGEN 0.2 E.U./dl (0.0-1.0)
[2024-01-02 19:26] LABS: PH 8.5 (4.5-8.0)
[2024-01-02 19:31] LABS: BACTERIA TRACE
[2024-01-02 19:31] LABS: URINE AMPHETAMINES Negative (1000ng/ml); URINE BARBITURATES Negative (200ng/ml); URINE BENZODIAZEPINES Negative (200ng/ml); URINE CANNABINOIDS (THC) Positive (50ng/ml); URINE COCAINE Negative (300ng/ml); URINE METHADONE Negative (300ng/ml); URINE OPIATES Negative (300ng/ml); URINE PHENCYCLIDINE Negative (25ng/ml)
[2024-01-02] MEDS ORDERED: DEXTROSE 10 % IN WATER 250 ML IV PRN (20:10)
[2024-01-02] MEDS ORDERED: BISACODYL 5 MG TAB PO PRN (20:10)
[2024-01-02] MEDS ORDERED: Magnesium Hydroxide 30 ML UDC PO PRN (20:10)
[2024-01-02] MEDS ORDERED: Acetaminophen/Hydrocodone 5 MG/325 MG TABLET PO PRN (20:10)
[2024-01-02] MEDS ORDERED: TEMAZEPAM 15 MG CAP PO PRN (20:10)
[2024-01-02] MEDS ORDERED: BISACODYL 10 MG SUPP R PRN (20:10)
[2024-01-02] MEDS ORDERED: MORPHINE Sulfate 2 MG/ML SYR IV PRN (20:10)
[2024-01-02] MEDS ORDERED: ACETAMINOPHEN 650 MG SUPP R PRN (20:10)
[2024-01-02] MEDS ORDERED: ACETAMINOPHEN 325 MG TAB PO PRN (20:10)
[2024-01-02] MEDS ORDERED: POTASSIUM CHLORIDE 20 MEQ in Lactated Ringer's Solution 1,000 ML IV ONE (21:00)
[2024-01-02] MEDS ORDERED: INSULIN LISPRO 1 UNIT/0.01 ML SQ SCH (22:00)
[2024-01-02] MEDS ORDERED: HEPARIN SODIUM 5,000 UNIT/ML VIAL SC SCH (22:00)
[2024-01-02 22:11] VITALS: BP 160/90
[2024-01-02 22:36] VITALS: BP 185/104; BP 185/105
[2024-01-03] MEDS ORDERED: Prochlorperazine Edisylate 10 MG/2 ML VIAL IV PRN
[2024-01-03 00:17] VITALS: BP 188/104
[2024-01-03 00:22] LABS: BUN 59 mg/dl (9-23); CHLORIDE 81 mmol/L (98-107); POTASSIUM 2.9 mmol/L (3.4-5.1)
[2024-01-03] MEDS ORDERED: METOPROLOL SUCCINATE XR 50 MG TAB PO ONE (00:30)
[2024-01-03] MEDS ORDERED: POTASSIUM CHLORIDE IN WATER 100 ML IV SCH (01:00)
[2024-01-03 02:57] VITALS: BP 143/73
[2024-01-03 06:45] LABS: BUN 59 mg/dl (9-23); CHLORIDE 84 mmol/L (98-107); POTASSIUM 3.1 mmol/L (3.4-5.1)
[2024-01-03 06:46] LABS: HEMATOCRIT 26.8 % (42.0-52.0); MEAN CORPUSCULAR HGB 31.1 pg (27.0-31.0); MEAN CORPUSCULAR HGB CONC 32.5 g/dl (33.0-37.0); MEAN PLATELET VOLUME 9.4 fl (9.6-12.3); PLATELET COUNT AUTOMATED 464 10*3/uL (130-400); RED CELL DISTRI WIDTH 12.7 % (0-14.5)
[2024-01-03 06:47] LABS: MANUAL DIFF REFLEX YES; MEAN CELL VOLUME 95.7 fl (80.0-94.0)
[2024-01-03] MEDS ORDERED: POTASSIUM CHLORIDE 20 MEQ TAB PO ONE (07:55)
[2024-01-03 08:00] VITALS: BP 157/83
[2024-01-03 08:01] LABS: BASOPHILS 1 % (0-1); PLATELET SUFFICIENCY HIGH (NORMAL); TOTAL CELLS COUNTED 100 #CELLS
[2024-01-03] MEDS ORDERED: Cholecalciferol 2,000 UNIT TABLET (50 MCG) PO SCH (10:00)
[2024-01-03] MEDS ORDERED: ISOSORBIDE MONONITRATE 30 MG TAB PO SCH (10:00)
[2024-01-03] MEDS ORDERED: Insulin Glargine, Recombinan 1 UNIT/0.01 ML SC SCH (10:00)
[2024-01-03] MEDS ORDERED: ATORVASTATIN CALCIUM 40 MG TABLET PO SCH (10:00)
[2024-01-03] MEDS ORDERED: METOPROLOL SUCCINATE XR 50 MG TAB PO SCH (10:00)
[2024-01-03] MEDS ORDERED: ASPIRIN ENTERIC COATED 81 MG TAB PO SCH (10:00)
[2024-01-03] MEDS ORDERED: LORazepam 1 MG TAB PO PRN (11:15)
[2024-01-03] MEDS ORDERED: Acetaminophen/Oxycodone 5 MG/325 MG TABLET PO PRN (11:15)
[2024-01-03 12:00] VITALS: BP 157/92
[2024-01-03 16:00] VITALS: BP 155/70
[2024-01-03] MEDS ORDERED: POTASSIUM CHLORIDE 20 MEQ in Lactated Ringer's Solution 1,000 ML IV SCH (16:45)
[2024-01-03 20:00] VITALS: BP 142/99
[2024-01-03] MEDS ORDERED: Vancomycin Hydrochloride 1,000 MG in SODIUM CHLORIDE 0.9% 250 ML IV SCH (22:15)
[2024-01-03] MEDS ORDERED: VANCOMYCIN/WATER FOR INJ (PEG) 350 ML IV ONE (22:25)
[2024-01-04] VITALS: BP 151/88
[2024-01-04 06:35] LABS: BASO % 0.3 % (0.0-1.0); EOS # 0.2 10*3/uL (0.0-0.4); EOS % 1.5 % (1.0-4.0); HEMATOCRIT 26.4 % (42.0-52.0); LYMPH # 2.2 10*3/uL (1.3-4.4); LYMPH % 18.5 % (27.0-41.0); MEAN CELL VOLUME 94.3 fl (80.0-94.0); MEAN CORPUSCULAR HGB 31.1 pg (27.0-31.0); MEAN PLATELET VOLUME 9.3 fl (9.6-12.3); MONO # 0.8 10*3/uL (0.1-1.0); NEUT # 8.7 10*3/uL (2.3-7.9); NEUT % 72.1 % (47.0-73.0); PLATELET COUNT AUTOMATED 416 10*3/uL (130-400); RED CELL DISTRI WIDTH 12.3 % (0-14.5)
[2024-01-04 06:43] LABS: POTASSIUM 2.8 mmol/L (3.4-5.1)
[2024-01-04] MEDS ORDERED: POTASSIUM CHLORIDE 20 MEQ TAB PO ONE (07:50)
[2024-01-04 08:00] VITALS: BP 146/76
[2024-01-04] MEDS ORDERED: Insulin Glargine, Recombinan 1 UNIT/0.01 ML SC SCH (10:00)
[2024-01-04 12:00] VITALS: BP 142/67
[2024-01-04 16:00] VITALS: BP 154/87
[2024-01-04 20:00] VITALS: BP 149/90
[2024-01-05] VITALS: BP 150/97
[2024-01-05 06:22] LABS: BASO % 0.6 % (0.0-1.0); EOS # 0.2 10*3/uL (0.0-0.4); EOS % 2.3 % (1.0-4.0); HEMATOCRIT 23.8 % (42.0-52.0); LYMPH # 1.6 10*3/uL (1.3-4.4); LYMPH % 23.2 % (27.0-41.0); MEAN CELL VOLUME 93.3 fl (80.0-94.0); MEAN CORPUSCULAR HGB 31.4 pg (27.0-31.0); MEAN CORPUSCULAR HGB CONC 33.6 g/dl (33.0-37.0); MEAN PLATELET VOLUME 9.5 fl (9.6-12.3); MONO # 0.5 10*3/uL (0.1-1.0); MONO % 6.9 % (3.0-9.0); NEUT # 4.6 10*3/uL (2.3-7.9); NEUT % 66.6 % (47.0-73.0); PLATELET COUNT AUTOMATED 331 10*3/uL (130-400); RED BLOOD COUNT 2.55 10*6/uL (4.50-5.90); RED CELL DISTRI WIDTH 12.4 % (0-14.5)
[2024-01-05 06:36] LABS: TOTAL PROTEIN 6.5 gm/dL (6.0-8.0)
[2024-01-05 06:40] LABS: POTASSIUM 4.3 mmol/L (3.4-5.1)
[2024-01-05 08:00] VITALS: BP 144/83
[2024-01-05] MEDS ORDERED: Nicotine 21 MG PATCH T SCH (10:15)
[2024-01-05 12:00] VITALS: BP 136/86; BP 144/91
[2024-01-05 16:00] VITALS: BP 141/71
[2024-01-05 20:00] VITALS: BP 143/89
[2024-01-05] MEDS ORDERED: VANCOMYCIN/WATER FOR INJ (PEG) 300 ML IV SCH (23:00)
[2024-01-06] VITALS (12 sets, daily range): BP systolic 114–140; BP diastolic 56–88
[2024-01-06 06:34] LABS: TOTAL PROTEIN 6.3 gm/dL (6.0-8.0)
[2024-01-06] MEDS ORDERED: SODIUM CHLORIDE 0.9% 1,000 ML IV ONE (12:45)
[2024-01-06] MEDS ORDERED: BUPIVACAINE 0.5% 30 ML IV ONE (13:31)
[2024-01-06] MEDS ORDERED: VANC1PIG IV (21:27)
[2024-01-07] VITALS: BP 124/62
[2024-01-07 05:52] LABS: POTASSIUM 4.9 mmol/L (3.4-5.1)
[2024-01-07 06:51] LABS: BASO # 0.1 10*3/uL (0.0-0.1); BASO % 0.9 % (0.0-1.0); EOS # 0.3 10*3/uL (0.0-0.4); EOS % 3.8 % (1.0-4.0); HEMATOCRIT 24.1 % (42.0-52.0); LYMPH # 2.4 10*3/uL (1.3-4.4); LYMPH % 36.8 % (27.0-41.0); MEAN CORPUSCULAR HGB 31.7 pg (27.0-31.0); MEAN CORPUSCULAR HGB CONC 32.4 g/dl (33.0-37.0); MEAN PLATELET VOLUME 9.9 fl (9.6-12.3); MONO # 0.7 10*3/uL (0.1-1.0); MONO % 9.8 % (3.0-9.0); NEUT # 3.2 10*3/uL (2.3-7.9); NEUT % 48.1 % (47.0-73.0); PLATELET COUNT AUTOMATED 308 10*3/uL (130-400); RED BLOOD COUNT 2.46 10*6/uL (4.50-5.90); RED CELL DISTRI WIDTH 12.8 % (0-14.5); WHITE BLOOD COUNT 6.6 10*3/uL (4.8-10.8)
[2024-01-07 08:00] VITALS: BP 133/71
[2024-01-07 12:00] VITALS: BP 126/68
[2024-01-07 16:00] VITALS: BP 126/68
[2024-01-07] MEDS ORDERED: ZYVOX600 MG PO (18:02)
[2024-01-07 20:00] VITALS: BP 134/75
[2024-01-07] MEDS ORDERED: LINEZOLID 600 MG TAB PO SCH (22:00)
[2024-01-08] VITALS: BP 98/35
[2024-01-08 06:33] LABS: BASO % 0.5 % (0.0-1.0); EOS # 0.2 10*3/uL (0.0-0.4); EOS % 3.8 % (1.0-4.0); HEMATOCRIT 22.9 % (42.0-52.0); LYMPH % 34.5 % (27.0-41.0); MEAN CELL VOLUME 98.7 fl (80.0-94.0); MEAN CORPUSCULAR HGB 31.5 pg (27.0-31.0); MEAN CORPUSCULAR HGB CONC 31.9 g/dl (33.0-37.0); MEAN PLATELET VOLUME 9.9 fl (9.6-12.3); MONO # 0.5 10*3/uL (0.1-1.0); MONO % 8.9 % (3.0-9.0); NEUT % 51.6 % (47.0-73.0); PLATELET COUNT AUTOMATED 315 10*3/uL (130-400); RED BLOOD COUNT 2.32 10*6/uL (4.50-5.90); RED CELL DISTRI WIDTH 12.8 % (0-14.5); WHITE BLOOD COUNT 5.8 10*3/uL (4.8-10.8)
[2024-01-08 06:59] LABS: POTASSIUM 4.8 mmol/L (3.4-5.1)
[2024-01-08 08:00] VITALS: BP 113/52
[2024-01-08] MEDS ORDERED: SODIUM CHLORIDE 0.9% 1,000 ML IV ONE (08:35)
[2024-01-08] MEDS ORDERED: Lactated Ringer's Solution 1,000 ML IV ONE (10:30)
[2024-01-08 12:00] VITALS: BP 157/87
== END 2024-01-08 14:50 | disposition home or self-care (01) | DRG 206 ==
LOC: ED 15:15 → 4E 18:48 → EDHOLD 18:48 → 4E 21:54
PROVIDERS: Family Medicine; Internal Medicine; Student in an Organized Health Care Education/Training Program; ADMIT Internal Medicine; ATTEND Internal Medicine
PROC: 0JPT0WZ Removal of Totally Implantable Vascular Access Device from Trunk Subcutaneous Tissue and Fascia, Open Approach (ICD-10-PCS; principal; 2024-01-06)
DX: T82.7XXA Infection and inflammatory reaction due to other cardiac and vascular devices, implants and grafts, initial encounter (principal); A41.1 Sepsis due to other specified staphylococcus; R65.20 Severe sepsis without septic shock; N17.0 Acute kidney failure with tubular necrosis; E87.20 Acidosis, unspecified; R11.15 Cyclical vomiting syndrome unrelated to migraine; K21.9 Gastro-esophageal reflux disease without esophagitis; E87.6 Hypokalemia; G89.29 Other chronic pain; N18.4 Chronic kidney disease, stage 4 (severe); F41.1 Generalized anxiety disorder; I12.9 Hypertensive chronic kidney disease with stage 1 through stage 4 chronic kidney disease, or unspecified chronic kidney disease; R73.9 Hyperglycemia, unspecified; D64.9 Anemia, unspecified; E87.8 Other disorders of electrolyte and fluid balance, not elsewhere classified; F17.210 Nicotine dependence, cigarettes, uncomplicated; D75.839 Thrombocytosis, unspecified; F12.11 Cannabis abuse, in remission; Z90.49 Acquired absence of other specified parts of digestive tract; I25.2 Old myocardial infarction; Z87.898 Personal history of other specified conditions; Y83.8 Other surgical procedures as the cause of abnormal reaction of the patient, or of later complication, without mention of misadventure at the time of the procedure; Y92.89 Other specified places as the place of occurrence of the external cause

== ENCOUNTER → 2024-01-23 | Outpatient (CLI) | payer OTHER ==
[~2024-01-23] MED LIST changes: +VANC1PIG IV; +ZYVOX600 MG PO
[2024-01-23 11:04] LABS: BASO % 0.4 % (0.0-1.0); EOS # 0.1 10*3/uL (0.0-0.4); EOS % 0.9 % (1.0-4.0); HEMATOCRIT 27.7 % (42.0-52.0); LYMPH # 1.4 10*3/uL (1.3-4.4); LYMPH % 15.4 % (27.0-41.0); MEAN CELL VOLUME 96.5 fl (80.0-94.0); MEAN CORPUSCULAR HGB 32.1 pg (27.0-31.0); MEAN CORPUSCULAR HGB CONC 33.2 g/dl (33.0-37.0); MONO # 0.4 10*3/uL (0.1-1.0); NEUT # 7.2 10*3/uL (2.3-7.9); PLATELET COUNT AUTOMATED 451 10*3/uL (130-400); RED BLOOD COUNT 2.87 10*6/uL (4.50-5.90); RED CELL DISTRI WIDTH 12.9 % (0-14.5); WHITE BLOOD COUNT 9.1 10*3/uL (4.8-10.8)
[2024-01-23 11:25] LABS: POTASSIUM 4.1 mmol/L (3.4-5.1)
== END | disposition home or self-care (01) ==
LOC: LAB 10:46
PROVIDERS: ATTEND Internal Medicine Nephrology
DX: N17.9 Acute kidney failure, unspecified (principal)

== ENCOUNTER 2024-03-01 19:13 | Inpatient (IN) | payer OTHER ==
[~2024-03-01] VITALS: Ht 190.5 cm; Wt 99.1 kg
[2024-03-01 19:25] VITALS: BP 139/90
[2024-03-01] MEDS ORDERED: diphenhydrAMINE hydrochloride 50 MG/ML VIAL IV ONE (19:35)
[2024-03-01] MEDS ORDERED: SODIUM CHLORIDE 0.9% 1,000 ML IV ONE ×2 (19:35→22:20)
[2024-03-01] MEDS ORDERED: Metoclopramide Hydrochloride 10 MG/2 ML AMP IV ONE (19:35)
[2024-03-01 19:54] LABS: HEMATOCRIT 31.5 % (42.0-52.0); MANUAL DIFF REFLEX YES; MEAN CELL VOLUME 95.5 fl (80.0-94.0); MEAN CORPUSCULAR HGB 32.4 pg (27.0-31.0); PLATELET COUNT AUTOMATED 691 10*3/uL (130-400); RED CELL DISTRI WIDTH 12.4 % (0-14.5); WHITE BLOOD COUNT 18.8 10*3/uL (4.8-10.8)
[2024-03-01 20:15] LABS: PLATELET SUFFICIENCY HIGH (NORMAL); TOTAL CELLS COUNTED 100 #CELLS
[2024-03-01] MEDS ORDERED: SODIUM CHLORIDE 0.9% 1,000 ML IV SCH (20:25)
[2024-03-01 21:04] LABS: BUN 49 mg/dl (9-23); POTASSIUM 2.6 mmol/L (3.4-5.1)
[2024-03-01 21:05] LABS: SGPT/ALT 15 U/L (5-49); TOTAL PROTEIN 8.9 gm/dL (6.0-8.0)
[2024-03-01 21:06] LABS: ALKALINE PHOSPHATASE 193 U/L (46-116); LIPASE 35 U/L (12-53)
[2024-03-01 21:07] LABS: CHLORIDE 70 mmol/L (98-107)
[2024-03-01] MEDS ORDERED: Magnesium Hydroxide 30 ML UDC PO PRN (21:55)
[2024-03-01] MEDS ORDERED: ACETAMINOPHEN 325 MG TAB PO PRN (21:55)
[2024-03-01] MEDS ORDERED: Ondansetron Hydrochloride 4 MG/2 ML VIAL IV PRN (21:55)
[2024-03-01] MEDS ORDERED: POTASSIUM CHLORIDE IN WATER 100 ML IV SCH ×2 (22:00→23:00)
[2024-03-01] MEDS ORDERED: DEXTROSE 10 % IN WATER 250 ML IV PRN (22:00)
[2024-03-01] MEDS ORDERED: HEPARIN SODIUM 5,000 UNIT/ML VIAL SC SCH (22:00)
[2024-03-01] MEDS ORDERED: INSULIN LISPRO 1 UNIT/0.01 ML SQ SCH (22:00)
[2024-03-01] MEDS ORDERED: LORazepam 1 MG TAB PO PRN (22:05)
[2024-03-01] MEDS ORDERED: Acetaminophen/Oxycodone 5 MG/325 MG TABLET PO PRN (22:20)
[2024-03-01] MEDS ORDERED: diphenhydrAMINE hydrochloride 50 MG/ML VIAL IV PRN (22:20)
[2024-03-01] MEDS ORDERED: OXYCODONE HCL (IR) 5 MG TAB PO PRN (22:20)
[2024-03-01 23:09] VITALS: BP 163/96
[2024-03-02] VITALS (8 sets, daily range): BP systolic 128–148; BP diastolic 78–96
[2024-03-02] MEDS ORDERED: Prochlorperazine Edisylate 10 MG/2 ML VIAL IV SCH
[2024-03-02 00:07] LABS: ABG BASE EXCESS 17.3 mmol/L (-2.0-2.0); ARTERIAL BLOOD GAS PH 7.547 (7.35-7.45)
[2024-03-02] MEDS ORDERED: Prochlorperazine Edisylate 10 MG/2 ML VIAL IV PRN (01:45)
[2024-03-02 01:57] LABS: BILIRUBIN Negative (Negative); BLOOD Negative (Negative); CLARITY Clear (Clear); COLOR Yellow (Yellow); GLUCOSE Trace (Negative); KETONE Negative (Negative); LEUKO ESTERASE Negative (Negative); NITRITE Negative (Negative); UROBILINOGEN 0.2 E.U./dl (0.0-1.0)
[2024-03-02 02:02] LABS: PH >= 9.0 (4.5-8.0)
[2024-03-02 02:04] LABS: URINE AMPHETAMINES Negative (1000ng/ml); URINE BARBITURATES Negative (200ng/ml); URINE BENZODIAZEPINES Negative (200ng/ml); URINE CANNABINOIDS (THC) Positive (50ng/ml); URINE COCAINE Negative (300ng/ml); URINE METHADONE Negative (300ng/ml); URINE OPIATES Negative (300ng/ml); URINE PHENCYCLIDINE Negative (25ng/ml)
[2024-03-02 06:32] LABS: BASO % 0.1 % (0.0-1.0); EOS % 0.2 % (1.0-4.0); HEMATOCRIT 27.1 % (42.0-52.0); LYMPH # 2.2 10*3/uL (1.3-4.4); LYMPH % 13.3 % (27.0-41.0); MEAN CELL VOLUME 95.8 fl (80.0-94.0); MEAN CORPUSCULAR HGB 32.2 pg (27.0-31.0); MEAN CORPUSCULAR HGB CONC 33.6 g/dl (33.0-37.0); MEAN PLATELET VOLUME 8.8 fl (9.6-12.3); MONO # 1.3 10*3/uL (0.1-1.0); MONO % 8.1 % (3.0-9.0); NEUT # 12.8 10*3/uL (2.3-7.9); NEUT % 77.7 % (47.0-73.0); PLATELET COUNT AUTOMATED 551 10*3/uL (130-400); RED BLOOD COUNT 2.83 10*6/uL (4.50-5.90); RED CELL DISTRI WIDTH 12.5 % (0-14.5); WHITE BLOOD COUNT 16.5 10*3/uL (4.8-10.8)
[2024-03-02 06:48] LABS: ALKALINE PHOSPHATASE 154 U/L (46-116); BUN 50 mg/dl (9-23); CHLORIDE 83 mmol/L (98-107); POTASSIUM 2.6 mmol/L (3.4-5.1); SGPT/ALT 11 U/L (5-49); TOTAL PROTEIN 7.3 gm/dL (6.0-8.0)
[2024-03-02] MEDS ORDERED: METOPROLOL SUCCINATE XR 50 MG TAB PO SCH (10:00)
[2024-03-02] MEDS ORDERED: Metoclopramide Hydrochloride 5 MG TAB PO SCH (10:00)
[2024-03-02] MEDS ORDERED: ATORVASTATIN CALCIUM 40 MG TABLET PO SCH (10:00)
[2024-03-02] MEDS ORDERED: ISOSORBIDE MONONITRATE 30 MG TAB PO SCH (10:00)
[2024-03-02] MEDS ORDERED: ASPIRIN ENTERIC COATED 81 MG TAB PO SCH (10:00)
[2024-03-02] MEDS ORDERED: Lactated Ringer's Solution 1,000 ML IV SCH (11:40)
[2024-03-02] MEDS ORDERED: POTASSIUM CHLORIDE IN WATER 100 ML IV SCH (12:00)
[2024-03-02] MEDS ORDERED: POTASSIUM CHLORIDE 20 MEQ in Lactated Ringer's Solution 1,000 ML IV SCH (13:30)
[2024-03-03] VITALS: BP 114/70
[2024-03-03 06:44] LABS: BASO % 0.3 % (0.0-1.0); EOS # 0.2 10*3/uL (0.0-0.4); EOS % 1.7 % (1.0-4.0); HEMATOCRIT 25.7 % (42.0-52.0); LYMPH # 1.3 10*3/uL (1.3-4.4); LYMPH % 11.2 % (27.0-41.0); MEAN CELL VOLUME 95.5 fl (80.0-94.0); MEAN CORPUSCULAR HGB 31.6 pg (27.0-31.0); MEAN CORPUSCULAR HGB CONC 33.1 g/dl (33.0-37.0); MEAN PLATELET VOLUME 8.8 fl (9.6-12.3); MONO # 0.5 10*3/uL (0.1-1.0); MONO % 4.2 % (3.0-9.0); NEUT # 9.6 10*3/uL (2.3-7.9); PLATELET COUNT AUTOMATED 394 10*3/uL (130-400); RED BLOOD COUNT 2.69 10*6/uL (4.50-5.90); RED CELL DISTRI WIDTH 12.3 % (0-14.5); WHITE BLOOD COUNT 11.7 10*3/uL (4.8-10.8)
[2024-03-03 07:02] LABS: FREE T4 1.74 ng/dl (0.89-1.76); POTASSIUM 2.9 mmol/L (3.4-5.1)
[2024-03-03 08:00] VITALS: BP 133/74
[2024-03-03 12:00] VITALS: BP 150/85
[2024-03-03] MEDS ORDERED: POTASSIUM CHLORIDE 20 MEQ TAB PO ONE (15:50)
[2024-03-03 16:00] VITALS: BP 145/89
[2024-03-03 20:00] VITALS: BP 140/84
[2024-03-04] VITALS: BP 142/82
[2024-03-04 07:35] LABS: BASO % 0.2 % (0.0-1.0); EOS # 0.2 10*3/uL (0.0-0.4); HEMATOCRIT 23.1 % (42.0-52.0); LYMPH # 0.8 10*3/uL (1.3-4.4); LYMPH % 8.4 % (27.0-41.0); MEAN CELL VOLUME 96.7 fl (80.0-94.0); MEAN CORPUSCULAR HGB 32.6 pg (27.0-31.0); MEAN CORPUSCULAR HGB CONC 33.8 g/dl (33.0-37.0); MEAN PLATELET VOLUME 8.9 fl (9.6-12.3); MONO # 0.6 10*3/uL (0.1-1.0); MONO % 6.3 % (3.0-9.0); NEUT # 7.4 10*3/uL (2.3-7.9); NEUT % 82.7 % (47.0-73.0); RED BLOOD COUNT 2.39 10*6/uL (4.50-5.90); RED CELL DISTRI WIDTH 12.3 % (0-14.5)
[2024-03-04 07:36] LABS: PLATELET COUNT AUTOMATED 254 10*3/uL (130-400)
[2024-03-04 07:49] LABS: POTASSIUM 4.2 mmol/L (3.4-5.1)
[2024-03-04 08:00] VITALS: BP 135/85
[2024-03-04 12:00] VITALS: BP 145/85
== END 2024-03-04 13:50 | disposition home or self-care (01) | DRG 469 ==
LOC: ED 19:13 → EDHOLD 21:22 → 4E 03-02 15:06
PROVIDERS: Internal Medicine; Student in an Organized Health Care Education/Training Program; ADMIT Internal Medicine; ATTEND Internal Medicine
DX: N17.0 Acute kidney failure with tubular necrosis (principal); R65.10 Systemic inflammatory response syndrome (SIRS) of non-infectious origin without acute organ dysfunction; E87.1 Hypo-osmolality and hyponatremia; E87.20 Acidosis, unspecified; I12.0 Hypertensive chronic kidney disease with stage 5 chronic kidney disease or end stage renal disease; K52.9 Noninfective gastroenteritis and colitis, unspecified; E86.0 Dehydration; N18.6 End stage renal disease; E87.6 Hypokalemia; E87.8 Other disorders of electrolyte and fluid balance, not elsewhere classified; D72.829 Elevated white blood cell count, unspecified; F41.1 Generalized anxiety disorder; K21.9 Gastro-esophageal reflux disease without esophagitis; G89.29 Other chronic pain; R11.15 Cyclical vomiting syndrome unrelated to migraine; E83.52 Hypercalcemia; R73.9 Hyperglycemia, unspecified; D75.839 Thrombocytosis, unspecified; D53.9 Nutritional anemia, unspecified; F17.210 Nicotine dependence, cigarettes, uncomplicated; K44.9 Diaphragmatic hernia without obstruction or gangrene; K76.0 Fatty (change of) liver, not elsewhere classified; Z90.49 Acquired absence of other specified parts of digestive tract; I25.2 Old myocardial infarction; Z71.6 Tobacco abuse counseling

== ENCOUNTER 2024-04-19 12:00 | Inpatient (IN) | payer OTHER ==
[~2024-04-19] VITALS: Ht 193 cm; Wt 98.0 kg
[2024-04-19] VITALS: BP 118/68
[2024-04-19 12:11] VITALS: BP 151/98
[2024-04-19] MEDS ORDERED: Lactated Ringer's Solution 1,000 ML IV SCH (12:20)
[2024-04-19 13:01] LABS: BASO % 0.3 % (0.0-1.0); LYMPH # 1.6 10*3/uL (1.3-4.4); LYMPH % 14.1 % (27.0-41.0); MEAN CELL VOLUME 92.1 fl (80.0-94.0); MEAN CORPUSCULAR HGB 31.4 pg (27.0-31.0); MEAN CORPUSCULAR HGB CONC 34.1 g/dl (33.0-37.0); MEAN PLATELET VOLUME 10.7 fl (9.6-12.3); MONO # 0.9 10*3/uL (0.1-1.0); MONO % 7.6 % (3.0-9.0); NEUT # 8.9 10*3/uL (2.3-7.9); NEUT % 77.5 % (47.0-73.0); PLATELET COUNT AUTOMATED 569 10*3/uL (130-400); RED BLOOD COUNT 3.15 10*6/uL (4.50-5.90); RED CELL DISTRI WIDTH 12.4 % (0-14.5); WHITE BLOOD COUNT 11.5 10*3/uL (4.8-10.8)
[2024-04-19 13:14] LABS: ACT PARTIAL THROMBO TIME 25.6 SECONDS (20.0-32.1)
[2024-04-19] MEDS ORDERED: Ondansetron Hydrochloride 4 MG/2 ML VIAL IV ONE (13:20)
[2024-04-19] MEDS ORDERED: HYDROmorphONE Hydrochloride 1 MG/ML SYR IV ONE (13:20)
[2024-04-19 13:22] LABS: POTASSIUM 3.6 mmol/L (3.4-5.1); TOTAL PROTEIN 8.9 gm/dL (6.0-8.0)
[2024-04-19 13:49] VITALS: BP 145/89
[2024-04-19] MEDS ORDERED: Ondansetron Hydrochloride 4 MG/2 ML VIAL IV PRN ×2 (15:00→17:40)
[2024-04-19] MEDS ORDERED: BISACODYL 10 MG SUPP R PRN (15:00)
[2024-04-19] MEDS ORDERED: BISACODYL 5 MG TAB PO PRN (15:00)
[2024-04-19] MEDS ORDERED: Magnesium Hydroxide 30 ML UDC PO PRN (15:00)
[2024-04-19] MEDS ORDERED: Acetaminophen/Hydrocodone 5 MG/325 MG TABLET PO PRN (15:00)
[2024-04-19] MEDS ORDERED: Pantoprazole Sodium 40 MG TAB PO PRN (15:20)
[2024-04-19] MEDS ORDERED: SODIUM CHLORIDE 0.45% 1,000 ML IV ONE (15:25)
[2024-04-19 16:00] VITALS: BP 118/68
[2024-04-19] MEDS ORDERED: INSULIN LISPRO 1 UNIT/0.01 ML SQ SCH (16:30)
[2024-04-19] MEDS ORDERED: DEXTROSE 10 % IN WATER 250 ML IV PRN (16:30)
[2024-04-19] MEDS ORDERED: Scopolamine 1 PATCH PATCH T SCH (17:05)
[2024-04-19] MEDS ORDERED: LORazepam 1 MG TAB PO PRN (17:40)
[2024-04-19] MEDS ORDERED: Acetaminophen/Oxycodone 5 MG/325 MG TABLET PO PRN (17:45)
[2024-04-19 18:42] VITALS: BP 159/99
[2024-04-19] MEDS ORDERED: Ondansetron Hydrochloride 4 MG/2 ML VIAL IV SCH (20:00)
[2024-04-19 20:08] VITALS: BP 141/82
[2024-04-19] MEDS ORDERED: HEPARIN SODIUM 5,000 UNIT/ML VIAL SC SCH (22:00)
[2024-04-19] MEDS ORDERED: METOPROLOL SUCCINATE XR 50 MG TAB PO SCH (22:00)
[2024-04-20 00:03] VITALS: BP 123/74
[2024-04-20 00:19] LABS: BILIRUBIN Negative (Negative); BLOOD Negative (Negative); CLARITY Clear (Clear); COLOR Yellow (Yellow); GLUCOSE 1+ (Negative); KETONE Negative (Negative); LEUKO ESTERASE Negative (Negative); NITRITE Negative (Negative); PH 8.5 (4.5-8.0); SPECIFIC GRAVITY 1.015 (1.001-1.030); UROBILINOGEN 0.2 E.U./dl (0.0-1.0)
[2024-04-20 00:26] LABS: BACTERIA TRACE; HYALINE CAST 0-2; RBC 0-2 rbc/hpf (0-2)
[2024-04-20 05:21] VITALS: BP 155/101
[2024-04-20 06:28] LABS: BASO % 0.3 % (0.0-1.0); EOS # 0.1 10*3/uL (0.0-0.4); EOS % 1.1 % (1.0-4.0); HEMATOCRIT 25.5 % (42.0-52.0); LYMPH # 3.4 10*3/uL (1.3-4.4); LYMPH % 29.3 % (27.0-41.0); MEAN CELL VOLUME 95.1 fl (80.0-94.0); MEAN CORPUSCULAR HGB 31.7 pg (27.0-31.0); MEAN CORPUSCULAR HGB CONC 33.3 g/dl (33.0-37.0); MEAN PLATELET VOLUME 10.3 fl (9.6-12.3); MONO % 8.3 % (3.0-9.0); NEUT # 6.9 10*3/uL (2.3-7.9); NEUT % 60.7 % (47.0-73.0); PLATELET COUNT AUTOMATED 464 10*3/uL (130-400); RED BLOOD COUNT 2.68 10*6/uL (4.50-5.90); RED CELL DISTRI WIDTH 12.6 % (0-14.5); WHITE BLOOD COUNT 11.5 10*3/uL (4.8-10.8)
[2024-04-20 06:55] LABS: BUN 43 mg/dl (9-23); CHLORIDE 83 mmol/L (98-107); POTASSIUM 3.1 mmol/L (3.4-5.1)
[2024-04-20] MEDS ORDERED: MORPHINE Sulfate 2 MG/ML SYR IV PRN (09:30)
[2024-04-20 09:55] VITALS: BP 155/100
[2024-04-20] MEDS ORDERED: ISOSORBIDE MONONITRATE 30 MG TAB PO SCH (10:00)
[2024-04-20] MEDS ORDERED: Insulin Glargine, Recombinan 1 UNIT/0.01 ML SC SCH (10:00)
[2024-04-20] MEDS ORDERED: ATORVASTATIN CALCIUM 40 MG TABLET PO SCH (10:00)
[2024-04-20] MEDS ORDERED: POTASSIUM CHLORIDE 20 MEQ in Lactated Ringer's Solution 1,000 ML IV SCH (10:00)
[2024-04-20] MEDS ORDERED: POTASSIUM CHLORIDE 20 MEQ TAB PO SCH (10:00)
[2024-04-20] MEDS ORDERED: ASPIRIN ENTERIC COATED 81 MG TAB PO SCH (10:00)
[2024-04-20] MEDS ORDERED: Cholecalciferol 2,000 UNIT TABLET (50 MCG) PO SCH (10:00)
[2024-04-20 12:00] VITALS: BP 135/90
[2024-04-20 16:00] VITALS: BP 140/70
[2024-04-20 20:00] VITALS: BP 135/84
[2024-04-21] VITALS: BP 140/82
[2024-04-21 06:42] LABS: BASO % 0.3 % (0.0-1.0); EOS # 0.1 10*3/uL (0.0-0.4); EOS % 1.5 % (1.0-4.0); HEMATOCRIT 22.9 % (42.0-52.0); LYMPH # 2.2 10*3/uL (1.3-4.4); LYMPH % 23.9 % (27.0-41.0); MEAN CELL VOLUME 92.7 fl (80.0-94.0); MEAN CORPUSCULAR HGB CONC 34.5 g/dl (33.0-37.0); MEAN PLATELET VOLUME 10.4 fl (9.6-12.3); MONO # 0.7 10*3/uL (0.1-1.0); MONO % 7.2 % (3.0-9.0); NEUT # 6.1 10*3/uL (2.3-7.9); NEUT % 66.7 % (47.0-73.0); PLATELET COUNT AUTOMATED 398 10*3/uL (130-400); RED BLOOD COUNT 2.47 10*6/uL (4.50-5.90); RED CELL DISTRI WIDTH 12.8 % (0-14.5); WHITE BLOOD COUNT 9.2 10*3/uL (4.8-10.8)
[2024-04-21 08:00] VITALS: BP 134/89
[2024-04-21] MEDS ORDERED: Ondansetron Hydrochloride 4 MG/2 ML VIAL IV PRN (09:55)
[2024-04-21] MEDS ORDERED: POTASSIUM CHLORIDE 20 MEQ TAB PO ONE (10:00)
[2024-04-21] MEDS ORDERED: Metoclopramide Hydrochloride 10 MG/2 ML AMP IV SCH (11:00)
[2024-04-21 12:00] VITALS: BP 126/78
[2024-04-21 16:00] VITALS: BP 115/64
[2024-04-21 20:00] VITALS: BP 117/87
[2024-04-22] VITALS: BP 118/58
[2024-04-22 05:58] LABS: POTASSIUM 3.8 mmol/L (3.4-5.1)
[2024-04-22 08:00] VITALS: BP 119/88
[2024-04-22 12:00] VITALS: BP 132/76
[2024-04-22] MEDS ORDERED: PERCOCET 10-321 EACH PO (13:15)
[2024-04-22] MEDS ORDERED: LORAZEPAM2 MG PO (13:15)
== END 2024-04-22 15:22 | disposition home or self-care (01) | DRG 249 ==
LOC: ED 12:00 → EDHOLD 13:39 → 4E 13:39 → EDHOLD 13:40 → 4E 04-20 10:02
PROVIDERS: Emergency Medicine; Internal Medicine Nephrology; Student in an Organized Health Care Education/Training Program; ADMIT Internal Medicine; ATTEND Internal Medicine
DX: R11.15 Cyclical vomiting syndrome unrelated to migraine (principal); N17.0 Acute kidney failure with tubular necrosis; E87.20 Acidosis, unspecified; R65.10 Systemic inflammatory response syndrome (SIRS) of non-infectious origin without acute organ dysfunction; E87.1 Hypo-osmolality and hyponatremia; I12.0 Hypertensive chronic kidney disease with stage 5 chronic kidney disease or end stage renal disease; K58.9 Irritable bowel syndrome, unspecified; K21.9 Gastro-esophageal reflux disease without esophagitis; F12.10 Cannabis abuse, uncomplicated; E11.22 Type 2 diabetes mellitus with diabetic chronic kidney disease; N18.5 Chronic kidney disease, stage 5; F41.1 Generalized anxiety disorder; K76.0 Fatty (change of) liver, not elsewhere classified; F17.210 Nicotine dependence, cigarettes, uncomplicated; E11.65 Type 2 diabetes mellitus with hyperglycemia; E87.8 Other disorders of electrolyte and fluid balance, not elsewhere classified; E86.0 Dehydration; I25.2 Old myocardial infarction; Z90.49 Acquired absence of other specified parts of digestive tract; Z80.9 Family history of malignant neoplasm, unspecified; Z82.49 Family history of ischemic heart disease and other diseases of the circulatory system; Z82.3 Family history of stroke

== ENCOUNTER 2024-05-19 09:12 | Inpatient (IN) | payer OTHER ==
[~2024-05-19] VITALS: Ht 193 cm; Wt 98.5 kg
[~2024-05-19 09:12] MED LIST changes: +TRANSDERM-SCOP1 EAC1 TD
[2024-05-19 09:21] VITALS: BP 145/94
[2024-05-19] MEDS ORDERED: Lactated Ringer's Solution 1,000 ML IV SCH (09:30)
[2024-05-19 10:03] LABS: BASO % 0.2 % (0.0-1.0); EOS % 0.1 % (1.0-4.0); HEMATOCRIT 31.3 % (42.0-52.0); LYMPH # 0.9 10*3/uL (1.3-4.4); LYMPH % 8.3 % (27.0-41.0); MEAN CELL VOLUME 92.6 fl (80.0-94.0); MEAN CORPUSCULAR HGB CONC 34.5 g/dl (33.0-37.0); MEAN PLATELET VOLUME 9.4 fl (9.6-12.3); MONO # 0.6 10*3/uL (0.1-1.0); MONO % 5.8 % (3.0-9.0); NEUT # 9.2 10*3/uL (2.3-7.9); NEUT % 85.1 % (47.0-73.0); PLATELET COUNT AUTOMATED 492 10*3/uL (130-400); RED BLOOD COUNT 3.38 10*6/uL (4.50-5.90); RED CELL DISTRI WIDTH 12.8 % (0-14.5); WHITE BLOOD COUNT 10.8 10*3/uL (4.8-10.8)
[2024-05-19 10:13] LABS: ACT PARTIAL THROMBO TIME 25.1 SECONDS (20.0-32.1)
[2024-05-19] MEDS ORDERED: HYDROmorphONE Hydrochloride 0.5 MG/0.5 ML SYRINGE IV ONE (10:15)
[2024-05-19] MEDS ORDERED: diphenhydrAMINE hydrochloride 50 MG/ML VIAL IV ONE (10:15)
[2024-05-19 10:25] LABS: POTASSIUM 3.4 mmol/L (3.4-5.1)
[2024-05-19] MEDS ORDERED: Magnesium Hydroxide 30 ML UDC PO PRN (13:20)
[2024-05-19] MEDS ORDERED: BISACODYL 10 MG SUPP R PRN (13:20)
[2024-05-19] MEDS ORDERED: ACETAMINOPHEN 325 MG TAB PO PRN (13:20)
[2024-05-19] MEDS ORDERED: ACETAMINOPHEN 650 MG SUPP R PRN (13:20)
[2024-05-19] MEDS ORDERED: BISACODYL 5 MG TAB PO PRN (13:20)
[2024-05-19] MEDS ORDERED: MORPHINE Sulfate 2 MG/ML SYR IV PRN (13:35)
[2024-05-19] MEDS ORDERED: SODIUM CHLORIDE 0.9% 1,000 ML IV ONE (13:35)
[2024-05-19 13:36] LABS: BILIRUBIN Negative (Negative); BLOOD Negative (Negative); CLARITY Clear (Clear); COLOR Yellow (Yellow); GLUCOSE 2+ (Negative); KETONE Negative (Negative); LEUKO ESTERASE Negative (Negative); NITRITE Negative (Negative); SPECIFIC GRAVITY 1.015 (1.001-1.030); UROBILINOGEN 0.2 E.U./dl (0.0-1.0)
[2024-05-19 13:39] VITALS: BP 150/96
[2024-05-19 13:43] LABS: PH 8.5 (4.5-8.0)
[2024-05-19 13:48] LABS: BACTERIA TRACE; RBC 0-2 rbc/hpf (0-2)
[2024-05-19 13:50] LABS: URINE AMPHETAMINES Negative (1000ng/ml); URINE BARBITURATES Negative (200ng/ml); URINE BENZODIAZEPINES Negative (200ng/ml); URINE CANNABINOIDS (THC) Positive (50ng/ml); URINE COCAINE Negative (300ng/ml); URINE METHADONE Negative (300ng/ml); URINE OPIATES Negative (300ng/ml); URINE PHENCYCLIDINE Negative (25ng/ml)
[2024-05-19] MEDS ORDERED: DEXTROSE 10 % IN WATER 250 ML IV PRN (13:50)
[2024-05-19 14:00] VITALS: BP 158/93
[2024-05-19] MEDS ORDERED: Scopolamine 1 PATCH PATCH T SCH (14:00)
[2024-05-19] MEDS ORDERED: Metoclopramide Hydrochloride 5 MG TAB PO SCH (14:00)
[2024-05-19] MEDS ORDERED: INSULIN LISPRO 1 UNIT/0.01 ML SQ SCH (16:30)
[2024-05-19] MEDS ORDERED: Ondansetron Hydrochloride 4 MG/2 ML VIAL IV PRN (17:35)
[2024-05-19 20:00] VITALS: BP 159/105
[2024-05-19 20:20] VITALS: BP 178/100
[2024-05-19] MEDS ORDERED: HEPARIN SODIUM 5,000 UNIT/ML VIAL SC SCH (22:00)
[2024-05-19] MEDS ORDERED: METOPROLOL SUCCINATE XR 50 MG TAB PO SCH (22:00)
[2024-05-20] VITALS (9 sets, daily range): BP systolic 139–195; BP diastolic 60–101
[2024-05-20 06:45] LABS: BASO # 0.1 10*3/uL (0.0-0.1); BASO % 0.3 % (0.0-1.0); EOS # 0.1 10*3/uL (0.0-0.4); EOS % 0.4 % (1.0-4.0); HEMATOCRIT 29.3 % (42.0-52.0); LYMPH # 2.8 10*3/uL (1.3-4.4); MEAN CELL VOLUME 94.8 fl (80.0-94.0); MEAN CORPUSCULAR HGB CONC 33.8 g/dl (33.0-37.0); MEAN PLATELET VOLUME 9.4 fl (9.6-12.3); MONO # 1.3 10*3/uL (0.1-1.0); NEUT # 10.5 10*3/uL (2.3-7.9); PLATELET COUNT AUTOMATED 440 10*3/uL (130-400); RED BLOOD COUNT 3.09 10*6/uL (4.50-5.90); RED CELL DISTRI WIDTH 12.9 % (0-14.5); WHITE BLOOD COUNT 14.9 10*3/uL (4.8-10.8)
[2024-05-20 06:58] LABS: BUN 48 mg/dl (9-23); CHLORIDE 82 mmol/L (98-107); FREE T4 2.12 ng/dl (0.89-1.76); POTASSIUM 2.9 mmol/L (3.4-5.1)
[2024-05-20] MEDS ORDERED: POTASSIUM CHLORIDE 40 MEQ in SODIUM CHLORIDE 0.9% 1,000 ML IV ONE (07:45)
[2024-05-20] MEDS ORDERED: ISOSORBIDE MONONITRATE 30 MG TAB PO SCH (10:00)
[2024-05-20] MEDS ORDERED: POTASSIUM CHLORIDE 20 MEQ TAB PO SCH (10:00)
[2024-05-20] MEDS ORDERED: ATORVASTATIN CALCIUM 40 MG TABLET PO SCH (10:00)
[2024-05-20] MEDS ORDERED: Insulin Glargine, Recombinan 1 UNIT/0.01 ML SC SCH (10:00)
[2024-05-20] MEDS ORDERED: ASPIRIN ENTERIC COATED 81 MG TAB PO SCH (10:00)
[2024-05-20] MEDS ORDERED: POTASSIUM CHLORIDE 20 MEQ in Lactated Ringer's Solution 1,000 ML IV SCH ×2 (11:00→11:30)
[2024-05-20] MEDS ORDERED: Metoclopramide Hydrochloride 10 MG/2 ML AMP IV SCH (11:00)
[2024-05-21] VITALS: BP 144/82
[2024-05-21 06:13] LABS: POTASSIUM 2.5 mmol/L (3.4-5.1)
[2024-05-21 06:22] LABS: BASO % 0.3 % (0.0-1.0); EOS % 0.4 % (1.0-4.0); HEMATOCRIT 26.4 % (42.0-52.0); LYMPH # 1.6 10*3/uL (1.3-4.4); LYMPH % 15.8 % (27.0-41.0); MEAN CORPUSCULAR HGB CONC 34.1 g/dl (33.0-37.0); MEAN PLATELET VOLUME 9.4 fl (9.6-12.3); MONO # 0.8 10*3/uL (0.1-1.0); NEUT # 7.8 10*3/uL (2.3-7.9); NEUT % 75.2 % (47.0-73.0); PLATELET COUNT AUTOMATED 349 10*3/uL (130-400); RED BLOOD COUNT 2.81 10*6/uL (4.50-5.90); RED CELL DISTRI WIDTH 12.2 % (0-14.5); WHITE BLOOD COUNT 10.4 10*3/uL (4.8-10.8)
[2024-05-21 08:00] VITALS: BP 164/90
[2024-05-21] MEDS ORDERED: POTASSIUM CHLORIDE IN WATER 100 ML IV SCH (08:00)
[2024-05-21] MEDS ORDERED: POTASSIUM CHLORIDE 20 MEQ in Lactated Ringer's Solution 1,000 ML IV SCH (08:19)
[2024-05-21 12:00] VITALS: BP 160/100
[2024-05-21 14:29] LABS: POTASSIUM 3.1 mmol/L (3.4-5.1)
[2024-05-21 16:00] VITALS: BP 166/103
[2024-05-21] MEDS ORDERED: Potassium Bicarbonate/Potass 25 MEQ TAB PO ONE (16:30)
[2024-05-21] MEDS ORDERED: Acetaminophen/Hydrocodone 5 MG/325 MG TABLET PO PRN (16:30)
[2024-05-21] MEDS ORDERED: fentaNYL CITRATE 100 MCG/2 ML VIAL IV PRN (16:30)
[2024-05-21] MEDS ORDERED: hydrALAZINE hydrochloride 10 MG TAB PO SCH (16:35)
[2024-05-21 20:00] VITALS: BP 141/83
[2024-05-22 00:03] VITALS: BP 141/85
[2024-05-22 07:22] LABS: POTASSIUM 3.5 mmol/L (3.4-5.1)
[2024-05-22 08:00] VITALS: BP 149/89
[2024-05-22] MEDS ORDERED: Insulin Glargine, Recombinan 1 UNIT/0.01 ML SC SCH (10:00)
[2024-05-22] MEDS ORDERED: ATIVAN2 M1 PO (10:58)
[2024-05-22] MEDS ORDERED: PERCOCET 10-321 EACH PO (10:58)
== END 2024-05-22 11:40 | disposition home or self-care (01) | DRG 422 ==
LOC: ED 09:12 → 4E 11:54 → EDHOLD 11:54 → 4E 05-20 13:29
PROVIDERS: Internal Medicine; Student in an Organized Health Care Education/Training Program; ADMIT Student in an Organized Health Care Education/Training Program; ATTEND Student in an Organized Health Care Education/Training Program
DX: E86.0 Dehydration (principal); N17.0 Acute kidney failure with tubular necrosis; E87.3 Alkalosis; E87.20 Acidosis, unspecified; N18.6 End stage renal disease; I12.0 Hypertensive chronic kidney disease with stage 5 chronic kidney disease or end stage renal disease; E88.09 Other disorders of plasma-protein metabolism, not elsewhere classified; R11.15 Cyclical vomiting syndrome unrelated to migraine; E87.6 Hypokalemia; K21.9 Gastro-esophageal reflux disease without esophagitis; E83.52 Hypercalcemia; F17.210 Nicotine dependence, cigarettes, uncomplicated; F41.1 Generalized anxiety disorder; K58.9 Irritable bowel syndrome, unspecified; E11.22 Type 2 diabetes mellitus with diabetic chronic kidney disease; E11.65 Type 2 diabetes mellitus with hyperglycemia; D75.839 Thrombocytosis, unspecified; E87.8 Other disorders of electrolyte and fluid balance, not elsewhere classified; D64.9 Anemia, unspecified; F12.11 Cannabis abuse, in remission; Z71.6 Tobacco abuse counseling; Z99.2 Dependence on renal dialysis; Z79.899 Other long term (current) drug therapy; I25.2 Old myocardial infarction; Z79.01 Long term (current) use of anticoagulants; Z79.2 Long term (current) use of antibiotics; Z90.49 Acquired absence of other specified parts of digestive tract; Z82.49 Family history of ischemic heart disease and other diseases of the circulatory system; Z80.8 Family history of malignant neoplasm of other organs or systems; Z82.3 Family history of stroke; Z79.4 Long term (current) use of insulin